=== PATIENT | male | born 1970 | race Caucasian/White ===

== ENCOUNTER 2016-05-21 07:53 | Emergency (ER) | payer BC ==
[2016-05-21 08:27] VITALS: TEMP 97.5
[2016-05-21] MEDS ORDERED: SODIUM CHLORIDE 0.9% (FLUSH) 10 ML SYG IV PRN (08:34)
[2016-05-21] MEDS ORDERED: ONDANSETRON INJ 4 MG/2 ML VIAL IV ONE (08:34)
[2016-05-21] MEDS ORDERED: SODIUM CHLORIDE 0.9% 1000ML 1,000 ML IVS PRN (08:34)
--- NOTE | 2016-05-21 08:41 | ED.PDOC ---
History of Present Illness - General Chief Complaint: GI Problem Stated Complaint: vomiting Time Seen by Provider: 05/21/16 08:34 Information Source: patient Exam Limitations: no limitations - History of Present Illness Initial Comments: PT REPORTS THAT HE ACCIDENTALLY TOOK ONE OF HIS MOTHERS 200MG CELEBREX. SHORTLY THEREAFTER HE BEGAN TO HAVE MULTIPLE EPISODES OF VOMITING. PT DENIES ABDOMINAL PAIN, CONSTIPATION OR DIARRHEA. PT REPORTS RECENT SURGERY ON SCROTUM ABOUT 1 WK AGO. UNCLEAR WHETHER SURGERY WAS FOR VARICOCEAL OR HERNIA. PT REPORTS CONTINUED SWELLING TO THE SCROTUM WITHOUT PAIN. PT HAS FOLLOW UP APPT WITH SURGEON NEXT WEEK. Timing/Duration: 1 hour Improving Factors: nothing Worsening Factors: nothing Associated Symptoms: denies symptoms Review of Systems - Review of Systems Constitutional: Denies: diaphoresis, fever EENTM: Denies: eye pain, blurred vision Respiratory: Denies: cough, short of breath Cardiology: Denies: chest pain, palpitations Gastrointestinal/Abdominal: States: see HPI, vomiting. Denies: abdominal pain, constipation, diarrhea Musculoskeletal: Denies: back pain, joint swelling Skin: Denies: change in color, dryness Neurological: Denies: headache, tremors Endocrine: Denies: no symptoms reported Past Medical History (General) - Patient Medical History Hx Seizures: No Hx Stroke: No Hx Dementia: No Hx Asthma: Yes Hx of COPD: No Hx Cardiac Disorders: No Hx Congestive Heart Failure: No Hx Pacemaker: No Hx Hypertension: Yes Hx Thyroid Disease: No Hx Diabetes: No Hx Gastroesophageal Reflux: No Hx Renal Disease: No Hx Cancer: No Hx of HIV: No Hx Hepatitis C: No Hx MRSA: No Hx Other - free text: BIPOLAR, ANXIETY, ADHD Surgical History: cholecystectomy Other Surgeries:: CARPAL TUNNEL, SCROTAL SURGERY LAST WEEK - Vaccination History Hx Tetanus, Diphtheria Vaccination: No Hx Influenza Vaccination: Yes Hx Pneumococcal Vaccination: Yes - Social History Hx Tobacco Use: No Hx Chewing Tobacco Use: Yes Hx Alcohol Use: No Hx Substance Use: No Hx Substance Use Treatment: No Hx Depression: Yes Hx Physical Abuse: No Hx Emotional Abuse: No Hx Suspected Abuse: No - Female History Patient : No Family Medical History - Family History Mother Family History: No Known Living Status: Unknown Hx Family Congestive Heart Failure: Yes Hx Family Diabetes: Yes Physical Exam - Physical Exam General Appearance: Alert, No apparent distress, Obese, Well Developed, Well Groomed Eyes, Ears, Nose, Throat Exam: PERRL/EOMI, normal ENT inspection Neck: full range of motion, normal inspection Respiratory: lungs clear, no respiratory distress Cardiovascular/Chest: regular rate, rhythm, no murmur Gastrointestinal/Abdominal: normal bowel sounds, non tender, soft Male Genitalia: other - MODERATE TO SEVERE GENERALIZED SWELLING TO SCROTUM, NON TENDER TO PALPATION. SURGICAL INCISION ALONG RIGHT SIDE OF SCROTUM WITH SUTURES IN PLACE. NO ERYTHEMA, NO INDURATION. Extremity: normal range of motion, normal inspection Neurologic: normal mood/affect, oriented x 3 Skin Exam: normal color, warm/dry Progress - Progress Progress: 05/21/16 09:34 PT RESTING COMFORTABLY, ABLE TO TOLERATE PO WHILE IN THE ED. LABS AND XRAY DISCUSSED WITH PT. PT WILL FOLLOW UP WITH SURGEON PREVIOUSLY ARRANGED NEXT WEEK. - Results/Orders Results/Orders: Laboratory Tests 05/21/16 09:10 WBC 8.3 RBC 4.78 Hgb 14.6 Hct 43.2 MCV 90.4 MCH 30.6 MCHC 33.9 RDW 13.8 Plt Count 305 MPV 7.9 Absolute Neuts (auto) 5.50 Absolute Lymphs (auto) 1.50 Absolute Monos (auto) 0.90 H Absolute Eos (auto) 0.30 Absolute Basos (auto) 0.10 Neutrophils % 66.0 Lymphocytes % 18.4 L Monocytes % 11.3 H Eosinophils % 3.1 Basophils % 1.2 Sodium 137 Potassium 3.9 Chloride 103 Carbon Dioxide 27 Anion Gap 10.9 L BUN 20 H Creatinine 0.72 BUN/Creatinine Ratio 27.8 H Random Glucose 116 H Serum Osmolality 277.4 Calcium 9.2 Total Bilirubin 0.3 Direct Bilirubin < 0.1 Indirect Bilirubin 0.2 AST 30 ALT 36 Alkaline Phosphatase 105 Serum Total Protein 7.0 Albumin 3.9 - EKG/XRAY/CT Xray Comments: NON OBSTRUCTIVE BOWEL GAS PATTERN ON 2 VIEW ABD FILM Departure - Departure Clinical Impression: Vomiting, Accidental medication overdose Time of Disposition: 10:02 Disposition: Discharge to Home or Self Care Condition: Excellent Departure Forms: ED Discharge - Pt. Copy, Patient Portal Self Enrollment Instructions: DI for Vomiting -- Adult Diet: bland diet Referrals: German Hassan MD [Primary Care Provider] - 1-2 Weeks Prescriptions: Ondansetron Odt [Zofran ODT] 8 mg PO Q8HR PRN #15 tab PRN Reason: Nausea/Vomiting Home Medications: Ambulatory Orders Amlodipine Besylate [Norvasc] 03/30/16 Aspirin [(None)] 325 mg PO 03/30/16 Atomoxetine HCl [Strattera] 40 mg PO 03/30/16 Calcium Carbonate-Cholecalcife [Calcium 1000 + D 1000-800 mg-Unit] 03/30/16 Citalopram Hydrobromide 40 mg PO 03/30/16 Lamotrigine [Lamictal] 03/30/16 Losartan Potassium 50 mg PO 03/30/16 Methylphenidate HCl [Methylphenidate HCl ER] 36 mg PO 03/30/16 Multiple Vitamins W/ Minerals [Multivitamin Adults] 03/30/16 [place]-3 Fatty Acids [Fish Oil] 1,000 mg PO 03/30/16 Oxcarbazepine [Trileptal] 150 mg PO 03/30/16 Pantoprazole Sodium [Protonix] 20 mg PO 03/30/16 Propranolol HCl [Inderal] 03/30/16 Tamsulosin [Flomax] 03/30/16 Doxycycline (Monohydrate) [Doxycycline] 100 mg PO BID #20 cap 05/11/16 Ibuprofen 800 mg PO Q8H PRN #30 tab 05/11/16 Ondansetron Odt [Zofran ODT] 8 mg PO Q8HR PRN #15 tab 05/21/16
--- NOTE | 2016-05-21 08:56 | RAD ---
EXAM DESCRIPTION: Abdomen radiography. CLINICAL HISTORY: Abdominal pain. COMPARISON: None. TECHNIQUE: Two views. FINDINGS: Bowel gas pattern is non-obstructed. There is no obvious free intraperitoneal air. Visualized segments of the abdominal organs are unremarkable. No suspicious bone lesion or fracture is seen. IMPRESSION: Nonspecific small bowel gas pattern. Patient is status post cholecystectomy. Electronically signed by: Mark Vines MD 05/21/2016 08:54
[2016-05-21 10:14] VITALS: BP 151/86; O2SAT 99
== END 2016-05-21 10:12 | disposition home or self-care (01) ==
LOC: ER 07:53
DX: T39.391A Poisoning by other nonsteroidal anti-inflammatory drugs [NSAID], accidental (unintentional), initial encounter (principal); R11.10 Vomiting, unspecified; F31.9 Bipolar disorder, unspecified; F41.9 Anxiety disorder, unspecified; Z98.890 Other specified postprocedural states

== ENCOUNTER → 2016-08-06 | Outpatient (CLI) | payer BC | END | disposition home or self-care (01) | LOC: GMA 12:01 | PROVIDERS: ATTEND Nurse Practitioner Acute Care | DX: M25.50 Pain in unspecified joint (principal); R53.83 Other fatigue; E29.1 Testicular hypofunction ==

== ENCOUNTER → 2016-08-25 | Outpatient (CLI) | payer BC | LOC: SL 13:12 | PROVIDERS: ATTEND Family Medicine | DX: G47.00 Insomnia, unspecified (principal); G31.84 Mild cognitive impairment of uncertain or unknown etiology; I27.9 Pulmonary heart disease, unspecified; E66.9 Obesity, unspecified; F39 Unspecified mood [affective] disorder ==

== ENCOUNTER 2016-08-26 17:01 | Emergency (ER) | payer BC ==
[2016-08-26 18:45] VITALS: TEMP 98.4
[2016-08-26] MEDS ORDERED: SODIUM CHLORIDE 0.9% (FLUSH) 10 ML SYG IV PRN (19:12)
--- NOTE | 2016-08-26 20:57 | RAD ---
Procedure: XR ABDOMEN 2 VIEWS SUPINE ERECT Exam Date: 08/26/2016 Ordering Provider: Kaitlin Bunch Clinical Indication: chest pain/sob/LUQ pain Comparison: 05/21/2016 Findings: Upright chest x-ray: Cardiac size is normal. Pulmonary vasculature is normal. Mediastinal and aortic contour normal. There is no consolidation or effusion. Flat and upright abdomen: Surgical clips in the right upper quadrant. There is no small or large bowel distention. There is no pneumoperitoneum. There are no suspicious calcifications. Pelvic phleboliths. There is no acute skeletal abnormality. Impression: 1. No acute radiographic abnormalities in the chest, abdomen or pelvis. Electronically signed by: Romeo Su MD 08/26/2016 8:56 PM CDT
--- NOTE | 2016-08-26 23:04 | CT ---
EXAM DESCRIPTION: Abdomen/Pelvis w/Contrast CLINICAL HISTORY: 46 years Male LLQ pain COMPARISON: None. TECHNIQUE: Contiguous axial images obtained through the abdomen and pelvis following IV contrast. Reformatted images obtained. This exam was performed according to our department optimization program which includes automated exposure control, adjustment of the mA and/or kv according to patient size and/or use of iterative reconstruction technique. FINDINGS: Mild atelectatic changes at the lung bases. Fatty replacement in the liver. The spleen and pancreas appear unremarkable. The left adrenal gland is mildly nodular. Mild perinephric stranding likely chronic. No hydronephrosis. Changes from previous cholecystectomy. No aneurysmal dilatation of the aorta. No bowel obstruction. Occasional colonic diverticula. The appendix appears unremarkable. No free pelvic fluid. Mild degenerative changes in the spine. IMPRESSION: No acute intra-abdominal abnormality is identified. Fatty replacement in the liver. The left adrenal gland is mildly nodular. Electronically signed by: Leno Morin MD 08/26/2016 11:03 PM CDT
[2016-08-26] MEDS ORDERED: KETOROLAC TROMETHAMINE INJ 30 MG/ML VIAL IV ONE (23:06)
--- NOTE | 2016-08-26 23:16 | ED.PDOC ---
History of Present Illness - General Chief Complaint: Respiratory Problem Stated Complaint: body aches and sob Time Seen by Provider: 08/26/16 19:12 Source: patient, RN notes reviewed, Vital Signs reviewed Exam Limitations: no limitations - History of Present Illness Initial Comments: Patient is a 46 y/o obese male who is complaining of musculoskeletal aches and pains all over. He has been to see his PCP and the PCP has ordered numerous tests and referrals. Patient States this has been going on for about 2 weeks. He is scheduled to start testosterone injections next week. The pain is achey and crampy, moderate to severe and worsening with time. The pain today is in his LLQ, however he still aches all over. Timing/Duration: getting worse, other - 2 weeks Severity: moderate, severe Improving Factors: nothing Worsening Factors: movement Associated Symptoms: chest pain, headaches, weakness Allergies/Adverse Reactions: Allergies NO KNOWN ALLERGY Allergy (Verified 08/26/16 18:45) Home Medications: Ambulatory Orders Amlodipine Besylate [Norvasc] 03/30/16 Aspirin [(None)] 325 mg PO 03/30/16 Atomoxetine HCl [Strattera] 40 mg PO 03/30/16 Calcium Carbonate-Cholecalcife [Calcium 1000 + D 1000-800 mg-Unit] 03/30/16 Citalopram Hydrobromide 40 mg PO 03/30/16 Lamotrigine [Lamictal] 03/30/16 Losartan Potassium 50 mg PO 03/30/16 Methylphenidate HCl [Methylphenidate HCl ER] 36 mg PO 03/30/16 Multiple Vitamins W/ Minerals [Multivitamin Adults] 03/30/16 [place]-3 Fatty Acids [Fish Oil] 1,000 mg PO 03/30/16 Oxcarbazepine [Trileptal] 150 mg PO 03/30/16 Pantoprazole Sodium [Protonix] 20 mg PO 03/30/16 Propranolol HCl [Inderal] 03/30/16 Tamsulosin [Flomax] 03/30/16 Doxycycline (Monohydrate) [Doxycycline] 100 mg PO BID #20 cap 05/11/16 Ibuprofen 800 mg PO Q8H PRN #30 tab 05/11/16 Ondansetron Odt [Zofran ODT] 8 mg PO Q8HR PRN #15 tab 05/21/16 Review of Systems - Review of Systems Constitutional: States: malaise, weakness EENTM: States: no symptoms reported Respiratory: States: cough, short of breath Cardiology: States: chest pain Gastrointestinal/Abdominal: States: abdominal pain. Denies: constipation, diarrhea, nausea, vomiting Genitourinary: States: other - testicular hydrocele Musculoskeletal: States: back pain, joint pain, muscle pain, muscle stiffness, neck pain Skin: States: no symptoms reported Neurological: States: headache, numbness, weakness Endocrine: States: no symptoms reported Hematologic/Lymphatic: States: no symptoms reported All other Systems: Reviewed and Negative Past Medical History (General) - Patient Medical History Hx Seizures: No Hx Stroke: No Hx Dementia: No Hx Asthma: Yes Hx of COPD: No Hx Cardiac Disorders: No Hx Congestive Heart Failure: No Hx Pacemaker: No Hx Hypertension: Yes Hx Thyroid Disease: No Hx Diabetes: No Hx Gastroesophageal Reflux: No Hx Renal Disease: No Hx Cancer: No Hx of HIV: No Hx Hepatitis C: No Hx MRSA: No Surgical History: cholecystectomy - Vaccination History Hx Tetanus, Diphtheria Vaccination: No Hx Influenza Vaccination: Yes Hx Pneumococcal Vaccination: Yes - Social History Hx Tobacco Use: No Hx Chewing Tobacco Use: Yes Hx Alcohol Use: No Hx Substance Use: No Hx Substance Use Treatment: No Hx Depression: Yes Hx Physical Abuse: No Hx Emotional Abuse: No Hx Suspected Abuse: No - Activities of Daily Living Hospice Agency (if applicable):: None - Female History Patient is a Female of Child Bearing Age (10 -59 yrs old): No Patient : No Family Medical History - Family History Mother Family History: No Known Living Status: Unknown Hx Family Congestive Heart Failure: Yes Hx Family Diabetes: Yes Physical Exam - Physical Exam General Appearance: Alert, Comfortable, No apparent distress Eye Exam: bilateral normal Ears, Nose, Throat: hearing grossly normal, normal ENT inspection Neck: full range of motion, supple Respiratory: chest non-tender, lungs clear, normal breath sounds, no respiratory distress Cardiovascular/Chest: regular rate, rhythm, no edema, no gallop, no murmur Gastrointestinal/Abdominal: normal bowel sounds, distended, tenderness - primarily in LLQ Back Exam: normal inspection, no CVA tenderness Extremity: normal range of motion, no calf tenderness, other - mild tenderness to palpation all muscles Neurologic: alert, normal mood/affect, oriented x 3 Skin Exam: normal color, warm/dry Progress - Progress Progress: 08/26/16 23:20 Patient's pain may be due to several etiologies, including fibromyalgia, Generalized cramps, viral syndrome, and many others. Patient's CK is normal and he does not have an elevated WBC. He is going to see specialists which I have encouraged him to keep appointments with. I have instructed him that, if taking naproxen and tylenol regularly do not help, he should call his office to see if there is any other medication he would like Patient to have. - Results/Orders Results/Orders: 08/26/16 08/26/16 08/26/16 18:37 18:45 19:40 Temperature 98.4 F Pulse Rate [ 81 77 pulse ox] Respiratory 20 20 20 Rate Blood Pressure 175/80 133/81 [Left Arm] O2 Sat by Pulse 93 L 97 Oximetry 08/26/16 21:41 Temperature Pulse Rate [ 71 pulse ox] Respiratory 20 Rate Blood Pressure 121/78 [Left Arm] O2 Sat by Pulse 97 Oximetry 08/26/16 19:12 Sodium Chloride 0.9% (Flush) [Saline Flush Syringe] 10 ml IV PRN PRN 08/26/16 19:13 IV Care:Saline Lock per Protoc QSHIFT Telemetry .ONCE EKG Assessment ONCE EKG Stat Pulse Ox Stat Pulse Oximetry Assessment DAILY 08/26/16 20:18 Hold Metformin x 48Hrs [id number] Laboratory Results WBC 9.3 K/mm3 (4.8-10.8) 08/26/16 20:00 RBC 4.74 M/mm3 (4.70-6.10) 08/26/16 20:00 Hgb 14.1 gm/dL (14.0-18.0) 08/26/16 20:00 Hct 41.9 % (42.0-52.0) L 08/26/16 20:00 MCV 88.3 fl (80.0-94.0) 08/26/16 20:00 MCH 29.7 pg (27.0-31.0) 08/26/16 20:00 MCHC 33.7 g/dL (33.0-37.0) 08/26/16 20:00 RDW 14.4 % (11.5-14.5) 08/26/16 20:00 Plt Count 256 K/mm3 (130-400) 08/26/16 20:00 MPV 8.3 fl (7.40-10.4) 08/26/16 20:00 Absolute Neuts (auto) 5.70 K/uL (1.8-6.8) 08/26/16 20:00 Absolute Lymphs (auto) 2.10 K/uL (1.0-3.4) 08/26/16 20:00 Absolute Monos (auto) 1.20 K/uL (0.2-0.8) H 08/26/16 20:00 Absolute Eos (auto) 0.20 K/uL (0.0-0.4) 08/26/16 20:00 Absolute Basos (auto) 0.10 K/uL (0.0-0.1) 08/26/16 20:00 Neutrophils % 61.4 % (42.0-78.0) 08/26/16 20:00 Lymphocytes % 22.5 % (20.0-50.0) 08/26/16 20:00 Monocytes % 12.7 % (2.0-9.0) H 08/26/16 20:00 Eosinophils % 2.3 % (1.0-5.0) 08/26/16 20:00 Basophils % 1.1 % (0.0-2.0) 08/26/16 20:00 PT 10.5 SECONDS (9.4-12.5) 08/26/16 20:00 INR 0.930 08/26/16 20:00 PTT (SP) 30.7 SECONDS (25.1-36.5) 08/26/16 20:00 D-Dimer, Quantitative < 200 ng/mL (0-230) 08/26/16 20:00 Sodium 137 mmol/L (135-145) 08/26/16 20:00 Potassium 3.5 mmol/L (3.6-5.0) L 08/26/16 20:00 Chloride 101 mmol/L (101-111) 08/26/16 20:00 Carbon Dioxide 29 mmol/L (21-31) 08/26/16 20:00 Anion Gap 10.5 (12-18) L 08/26/16 20:00 BUN 21 mg/dL (7-18) H 08/26/16 20:00 Creatinine 0.75 mg/dL (0.6-1.3) 08/26/16 20:00 BUN/Creatinine Ratio 28.0 (10-20) H 08/26/16 20:00 Random Glucose 88 mg/dL (70-105) 08/26/16 20:00 Serum Osmolality 276.2 mOsm/L (275-295) 08/26/16 20:00 Calcium 9.0 mg/dL (8.4-10.2) 08/26/16 20:00 Magnesium 1.9 mg/dL (1.8-2.5) 08/26/16 20:00 Total Bilirubin 0.3 mg/dL (0.2-1.0) 08/26/16 20:00 Direct Bilirubin < 0.1 mg/dL (0-0.2) 08/26/16 20:00 Indirect Bilirubin 0.2 mg/dL (0.2-0.8) 08/26/16 20:00 AST 31 IU/L (10-42) 08/26/16 20:00 ALT 48 IU/L (10-60) 08/26/16 20:00 Alkaline Phosphatase 90 IU/L (42-121) 08/26/16 20:00 Creatine Kinase 102 IU/L (38-174) 08/26/16 20:00 CK-MB (CK-2) 3.0 ng/mL (0.0-4.4) 08/26/16 20:00 CK-MB (CK-2) % Not Reportable 08/26/16 20:00 Troponin I < 0.02 ng/mL (0.01-0.05) 08/26/16 20:00 B-Natriuretic Peptide 6.4 pg/ml (0-100) 08/26/16 20:00 Serum Total Protein 6.8 gm/dL (6.4-8.2) 08/26/16 20:00 Albumin 3.9 g/dl (3.2-5.5) 08/26/16 20:00 Lipase 28 U/L (22-51) 08/26/16 20:00 - EKG/XRAY/CT XRAY: abdomen - Normal chest and abdomen CT: Abd/Pelvis with contrast: Normal CT Ordered: Yes CT Interpretation Call Back: No - Report sent Departure - Departure Clinical Impression: Myalgia ICD-10 Supporting Text: Generalized Time of Disposition: 23:28 Disposition: Discharge to Home or Self Care Condition: Fair Departure Forms: ED Discharge - Pt. Copy, Patient Portal Self Enrollment Diet: low fat, low cholesterol Referrals: German Hassan MD [Primary Care Provider] - 1-2 Days Home Medications: Ambulatory Orders Amlodipine Besylate [Norvasc] 03/30/16 Aspirin [(None)] 325 mg PO 03/30/16 Atomoxetine HCl [Strattera] 40 mg PO 03/30/16 Calcium Carbonate-Cholecalcife [Calcium 1000 + D 1000-800 mg-Unit] 03/30/16 Citalopram Hydrobromide 40 mg PO 03/30/16 Lamotrigine [Lamictal] 03/30/16 Losartan Potassium 50 mg PO 03/30/16 Methylphenidate HCl [Methylphenidate HCl ER] 36 mg PO 03/30/16 Multiple Vitamins W/ Minerals [Multivitamin Adults] 03/30/16 [place]-3 Fatty Acids [Fish Oil] 1,000 mg PO 03/30/16 Oxcarbazepine [Trileptal] 150 mg PO 03/30/16 Pantoprazole Sodium [Protonix] 20 mg PO 03/30/16 Propranolol HCl [Inderal] 03/30/16 Tamsulosin [Flomax] 03/30/16 Doxycycline (Monohydrate) [Doxycycline] 100 mg PO BID #20 cap 05/11/16 Ibuprofen 800 mg PO Q8H PRN #30 tab 05/11/16 Ondansetron Odt [Zofran ODT] 8 mg PO Q8HR PRN #15 tab 05/21/16 Additional Instructions: For pain control: Take over the counter Aleve - 2 tablets every 12 hours. Tylenol every 4 hours between Aleve. Follow up with Dr. Hassan if this does not control pain. Follow up in ED if symptoms worsen.
[2016-08-26 23:34] VITALS: BP 131/88; O2SAT 96
== END 2016-08-26 23:42 | disposition home or self-care (01) ==
LOC: ER 17:01
DX: M79.1 Myalgia (principal); J45.909 Unspecified asthma, uncomplicated; I10 Essential (primary) hypertension; F32.9 Major depressive disorder, single episode, unspecified; Z79.82 Long term (current) use of aspirin; Z79.899 Other long term (current) drug therapy; Z87.891 Personal history of nicotine dependence

== ENCOUNTER → 2016-09-08 | Outpatient (CLI) | payer BC | LOC: GMAM 17:49 | PROVIDERS: ATTEND Family Medicine | DX: R06.02 Shortness of breath (principal) ==

== ENCOUNTER 2016-10-14 19:01 | Emergency (ER) | payer BC ==
[2016-10-14 19:36] VITALS: TEMP 99.8
--- NOTE | 2016-10-14 19:54 | ED.PDOC ---
History of Present Illness - General Chief Complaint: Back Pain or Injury Stated Complaint: swollen feet, back pain, SOB, weight gain Time Seen by Provider: 10/14/16 19:47 Additional Information: PT C/O SWELLING LEGS AND FEET ASSOCIATED WITH PAIN - History of Present Illness Timing/Duration: other - 2 DAYS Severity: moderate Improving Factors: nothing Worsening Factors: other - WEIGHT BEARING Associated Symptoms: other - NO SOB Allergies/Adverse Reactions: Allergies Penicillins Allergy (Verified 10/14/16 19:23) Home Medications: Ambulatory Orders Amlodipine Besylate [Norvasc] 10 mg PO DAILY 03/30/16 Aspirin [(None)] 325 mg PO DAILY 03/30/16 Atomoxetine HCl [Strattera] 40 mg PO 03/30/16 Citalopram Hydrobromide 40 mg PO DAILY 03/30/16 Lamotrigine [Lamictal] 03/30/16 Losartan Potassium 50 mg PO BID 03/30/16 Methylphenidate HCl [Methylphenidate HCl ER] 36 mg PO 03/30/16 Multiple Vitamins W/ Minerals [Multivitamin Adults] 1 unit PO DAILY 03/30/16 Oxcarbazepine [Trileptal] 300 mg PO BID 03/30/16 Pantoprazole Sodium [Protonix] 40 mg PO DAILY 03/30/16 Propranolol HCl [Inderal] 20 mg PO BID 03/30/16 Ibuprofen 800 mg PO Q8H PRN #30 tab 05/11/16 Acetaminophen [Tylenol] 500 mg PO PRN 10/14/16 Albuterol Inhaler [Ventolin Hfa Inhaler] 1 inh INH PRN 10/14/16 Budesonide (Nasal) [Rhinocort Allergy] 32 mcg NA DAILY 10/14/16 Chlorpheniramine Maleate 4 mg PO PRN 10/14/16 EPINEPHrine INJ [Epinephrine HCl] 0.3 mg IJ PRN 10/14/16 Fexofenadine HCl [Allergy 24-Hr] 180 mg PO DAILY 10/14/16 Fluticasone Furoate-Vilanterol [Breo Ellipta 200-25 Mcg/INH] 1 inh INH DAILY Trazodone HCl 100 mg PO BEDTIME 10/14/16 Review of Systems - Review of Systems Constitutional: Denies: chills, fever EENTM: States: no symptoms reported Respiratory: States: wheezing. Denies: cough, short of breath Cardiology: Denies: chest pain, edema Gastrointestinal/Abdominal: Denies: nausea, vomiting Genitourinary: States: no symptoms reported Musculoskeletal: States: other - C/O ONLY SOME MILD BACK PAIN Skin: States: other - SWELLING OF THE [place]TE[place] Neurological: Denies: numbness, weakness Endocrine: States: no symptoms reported Past Medical History (General) - Patient Medical History Hx Seizures: No Hx Stroke: No Hx Dementia: No Hx Asthma: Yes Hx of COPD: No Hx Cardiac Disorders: No Hx Congestive Heart Failure: No Hx Pacemaker: No Hx Hypertension: Yes Hx Thyroid Disease: No Hx Diabetes: No Hx Gastroesophageal Reflux: No Hx Renal Disease: No Hx Cancer: No Hx of HIV: No Hx Hepatitis C: No Hx MRSA: No - Vaccination History Hx Tetanus, Diphtheria Vaccination: Yes Hx Influenza Vaccination: Yes Hx Pneumococcal Vaccination: Yes Immunizations Up to Date: Yes - Social History Hx Tobacco Use: No Hx Chewing Tobacco Use: Yes Hx Alcohol Use: Yes Hx Substance Use: No Hx Substance Use Treatment: No Hx Depression: Yes Feels Threatened In Home Enviroment: No Feels Threatened In a Relationship: No Hx Physical Abuse: No Hx Emotional Abuse: No Hx Suspected Abuse: No - Female History Patient : No Family Medical History - Family History Mother Family History: No Known Living Status: Unknown Hx Family Congestive Heart Failure: Yes Hx Family Diabetes: Yes Physical Exam - Physical Exam General Appearance: No apparent distress, Other - OBESE Eye Exam: bilateral normal Ears, Nose, Throat: hearing grossly normal, normal ENT inspection Neck: non-tender, full range of motion, supple Respiratory: normal breath sounds, no respiratory distress, wheezing Cardiovascular/Chest: regular rate, rhythm, no murmur Gastrointestinal/Abdominal: normal bowel sounds, non tender, soft, no organomegaly Back Exam: normal inspection, other - NO SACRAL EDEMA Extremity: normal range of motion, other - 2+ PITTING EDEMA Neurologic: alert, normal mood/affect Skin Exam: normal color Lymphatic: no adenopathy Progress - Progress Progress: 10/14/16 22:09 SLEEPING, NAD, SATS 93% RA, NL. - EKG/XRAY/CT EKG: Sinus - NSR 76, LAD, NON SPECIFIC T WAVE CHANGES, NAIP, COMPARISON, 2016 XRAY: chest - MILD ATELECTASIS L BASE. Departure - Departure Clinical Impression: Peripheral edema Chronic asthma Qualifiers: Asthma severity: mild intermittent Asthma complication type: uncomplicated Qualified Code(s): J45.20 - Mild intermittent asthma, uncomplicated Time of Disposition: 22:11 Disposition: Discharge to Home or Self Care Condition: Good Departure Forms: ED Discharge - Pt. Copy, Patient Portal Self Enrollment Referrals: German Hassan MD [Primary Care Provider] - 1-2 Weeks Home Medications: Ambulatory Orders Amlodipine Besylate [Norvasc] 10 mg PO DAILY 03/30/16 Aspirin [(None)] 325 mg PO DAILY 03/30/16 Atomoxetine HCl [Strattera] 40 mg PO 03/30/16 Citalopram Hydrobromide 40 mg PO DAILY 03/30/16 Lamotrigine [Lamictal] 03/30/16 Losartan Potassium 50 mg PO BID 03/30/16 Methylphenidate HCl [Methylphenidate HCl ER] 36 mg PO 03/30/16 Multiple Vitamins W/ Minerals [Multivitamin Adults] 1 unit PO DAILY 03/30/16 Oxcarbazepine [Trileptal] 300 mg PO BID 03/30/16 Pantoprazole Sodium [Protonix] 40 mg PO DAILY 03/30/16 Propranolol HCl [Inderal] 20 mg PO BID 03/30/16 Ibuprofen 800 mg PO Q8H PRN #30 tab 05/11/16 Acetaminophen [Tylenol] 500 mg PO PRN 10/14/16 Albuterol Inhaler [Ventolin Hfa Inhaler] 1 inh INH PRN 10/14/16 Budesonide (Nasal) [Rhinocort Allergy] 32 mcg NA DAILY 10/14/16 Chlorpheniramine Maleate 4 mg PO PRN 10/14/16 EPINEPHrine INJ [Epinephrine HCl] 0.3 mg IJ PRN 10/14/16 Fexofenadine HCl [Allergy 24-Hr] 180 mg PO DAILY 10/14/16 Fluticasone Furoate-Vilanterol [Breo Ellipta 200-25 Mcg/INH] 1 inh INH DAILY Trazodone HCl 100 mg PO BEDTIME 10/14/16 Additional Instructions: TAKE MEDICATIONS DIRECTED. Comments: RX HCTZ 25MG QD #20
[2016-10-14] MEDS ORDERED: IPRATROPIUM/ALBUTEROL 3 ML VIAL NEB ONE (19:55)
--- NOTE | 2016-10-14 20:40 | RAD ---
EXAM DESCRIPTION: Chest,2 Views CLINICAL HISTORY: 46 years Male wheezing COMPARISON: March 23, 2011. FINDINGS: The cardiomediastinal silhouette appears unremarkable. No consolidating infiltrates or pleural effusions. No pneumothorax. Small amount of pleural thickening is present along the lateral chest rios bilaterally this appears more prominent than on the previous study and may be related to pleural fat. Basilar atelectasis. IMPRESSION: Bilateral basilar atelectasis Electronically signed by: Jammie Morin 10/14/2016 8:40 PM CDT
[2016-10-14 22:23] VITALS: BP 108/70; O2SAT 96
== END 2016-10-14 22:24 | disposition home or self-care (01) ==
LOC: ER 19:01
DX: J45.20 Mild intermittent asthma, uncomplicated (principal); R60.0 Localized edema; Z87.891 Personal history of nicotine dependence; I10 Essential (primary) hypertension; Z88.0 Allergy status to penicillin; Z79.899 Other long term (current) drug therapy; Z79.82 Long term (current) use of aspirin

== ENCOUNTER → 2016-10-14 | Outpatient (CLI) | payer BC | LOC: GMA 17:03 | PROVIDERS: ATTEND Nurse Practitioner Family | DX: R06.02 Shortness of breath (principal) ==

== ENCOUNTER → 2016-10-14 | Outpatient (CLI) | payer BC ==
--- NOTE | 2016-10-14 13:57 | US ---
EXAM DESCRIPTION: Venous,Lower Extremity LT CLINICAL HISTORY: LEG SWELLING COMPARISON: None Available. TECHNIQUE: Left lower extremity venous grayscale, spectral, and color Doppler sonographic images. FINDINGS: There is no DVT identified. There is normal color flow observed with good flow augmentation. All deep veins compress normally. Mild soft tissue edema is present. IMPRESSION: Negative for DVT Electronically signed by: Jack Wylie MD 10/14/2016 1:56 PM CDT
== END ==
LOC: US 13:13
PROVIDERS: ATTEND Nurse Practitioner Family
DX: R60.0 Localized edema (principal)

== ENCOUNTER 2016-10-17 11:08 | Emergency (ER) | payer BC ==
--- NOTE | 2016-10-17 13:21 | ED.PDOC ---
History of Present Illness - General Chief Complaint: General Stated Complaint: daytime sleepiness Time Seen by Provider: 10/17/16 11:12 Source: patient, RN notes reviewed, Vital Signs reviewed Exam Limitations: no limitations Additional Information: Obese male who frequents ER. Complaining of persistently swollen lower legs/ feet. He is ambulatory. He also complains of persistent daytime sleepiness. Patient has history of Obstructive Sleep Apnea. Pt in no distress. - History of Present Illness Timing/Duration: unsure Severity: mild Improving Factors: nothing Worsening Factors: nothing Associated Symptoms: other - sleepiness and persistent lower extremity edema Allergies/Adverse Reactions: Allergies Penicillins Allergy (Verified 10/14/16 19:23) Home Medications: Ambulatory Orders Amlodipine Besylate [Norvasc] 10 mg PO DAILY 03/30/16 Aspirin [(None)] 325 mg PO DAILY 03/30/16 Atomoxetine HCl [Strattera] 40 mg PO 03/30/16 Citalopram Hydrobromide 40 mg PO DAILY 03/30/16 Lamotrigine [Lamictal] 03/30/16 Losartan Potassium 50 mg PO BID 03/30/16 Methylphenidate HCl [Methylphenidate HCl ER] 36 mg PO 03/30/16 Multiple Vitamins W/ Minerals [Multivitamin Adults] 1 unit PO DAILY 03/30/16 Oxcarbazepine [Trileptal] 300 mg PO BID 03/30/16 Pantoprazole Sodium [Protonix] 40 mg PO DAILY 03/30/16 Propranolol HCl [Inderal] 20 mg PO BID 03/30/16 Ibuprofen 800 mg PO Q8H PRN #30 tab 05/11/16 Acetaminophen [Tylenol] 500 mg PO PRN 10/14/16 Albuterol Inhaler [Ventolin Hfa Inhaler] 1 inh INH PRN 10/14/16 Budesonide (Nasal) [Rhinocort Allergy] 32 mcg NA DAILY 10/14/16 Chlorpheniramine Maleate 4 mg PO PRN 10/14/16 EPINEPHrine INJ [Epinephrine HCl] 0.3 mg IJ PRN 10/14/16 Fexofenadine HCl [Allergy 24-Hr] 180 mg PO DAILY 10/14/16 Fluticasone Furoate-Vilanterol [Breo Ellipta 200-25 Mcg/INH] 1 inh INH DAILY Trazodone HCl 100 mg PO BEDTIME 10/14/16 Review of Systems - Review of Systems Constitutional: States: no symptoms reported EENTM: States: see HPI Respiratory: States: see HPI, orthopnea Cardiology: States: no symptoms reported Gastrointestinal/Abdominal: States: no symptoms reported Genitourinary: States: no symptoms reported Musculoskeletal: States: no symptoms reported Skin: States: no symptoms reported Neurological: States: no symptoms reported Endocrine: States: no symptoms reported Hematologic/Lymphatic: States: no symptoms reported Past Medical History (General) - Patient Medical History Hx Seizures: No Hx Stroke: No Hx Dementia: No Hx Asthma: Yes Hx of COPD: No Hx Cardiac Disorders: No Hx Congestive Heart Failure: No Hx Pacemaker: No Hx Hypertension: Yes Hx Thyroid Disease: No Hx Diabetes: No Hx Gastroesophageal Reflux: No Hx Renal Disease: No Hx Cancer: No Hx of HIV: No Hx Hepatitis C: No Hx MRSA: No - Vaccination History Hx Tetanus, Diphtheria Vaccination: Yes Hx Influenza Vaccination: Yes Hx Pneumococcal Vaccination: Yes - Social History Hx Tobacco Use: No Hx Chewing Tobacco Use: Yes Hx Alcohol Use: Yes Hx Substance Use: No Hx Substance Use Treatment: No Hx Depression: Yes Hx Physical Abuse: No Hx Emotional Abuse: No Hx Suspected Abuse: No - Female History Patient : No Family Medical History - Family History Mother Family History: No Known Living Status: Unknown Hx Family Congestive Heart Failure: Yes Hx Family Diabetes: Yes Physical Exam - Physical Exam General Appearance: Comfortable, No apparent distress - , able to sleep comfortably in hospital bed and waiting in chair., Obese Eye Exam: bilateral normal Ears, Nose, Throat: hearing grossly normal, normal ENT inspection - other than mallampati IV, other - Mallampati IV Neck: non-tender, full range of motion, supple Respiratory: lungs clear, normal breath sounds, no respiratory distress Cardiovascular/Chest: normal peripheral pulses, regular rate, rhythm, no murmur Gastrointestinal/Abdominal: non tender, soft Back Exam: normal inspection, no vertebral tenderness Extremity: normal range of motion, non-tender, pedal edema - symmetric, bilateral about 1 to 2+; stable based on review of previous notes. 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 Patient provided reassurance and recommendation for further care. Pt stable for d/c home. Pt with Obstructive Sleep Apnea. He would likely benefit from follow-up with Sleep Doctor and Primary Care Provider. - Results/Orders Results/Orders: 10/17/16 11:13 URINALYSIS Stat Laboratory Results - last 24 hr 10/17/16 10/17/16 11:23 11:23 WBC 8.4 RBC 4.77 Hgb 14.1 Hct 42.4 MCV 88.9 MCH 29.6 MCHC 33.3 RDW 14.3 Plt Count 268 MPV 8.1 Absolute Neuts (auto) 5.20 Absolute Lymphs (auto) 1.70 Absolute Monos (auto) 1.10 H Absolute Eos (auto) 0.20 Absolute Basos (auto) 0.10 Neutrophils % 62.0 Lymphocytes % 20.8 Monocytes % 13.7 H Eosinophils % 2.3 Basophils % 1.2 Sodium 138 Potassium 3.8 Chloride 103 Carbon Dioxide 28 Anion Gap 10.8 L BUN 17 Creatinine 0.82 BUN/Creatinine Ratio 20.7 H Random Glucose 119 H Serum Osmolality 278.4 Calcium 9.3 Total Bilirubin 0.5 AST 35 ALT 52 Alkaline Phosphatase 91 B-Natriuretic Peptide 17.9 Serum Total Protein 6.9 Albumin 4.1 Globulin 2.8 Albumin/Globulin Ratio 1.5 Departure - Departure Clinical Impression: Sleepiness, Daytime sleepiness, Bilateral lower extremity edema Time of Disposition: 13:30 Disposition: Discharge to Home or Self Care Condition: Good Departure Forms: ED Discharge - Pt. Copy, Patient Portal Self Enrollment Instructions: DI for Obstructive Sleep Apnea -- Adult Referrals: German Hassan MD [Primary Care Provider] - 1-2 Days Home Medications: Ambulatory Orders Amlodipine Besylate [Norvasc] 10 mg PO DAILY 03/30/16 Aspirin [(None)] 325 mg PO DAILY 03/30/16 Atomoxetine HCl [Strattera] 40 mg PO 03/30/16 Citalopram Hydrobromide 40 mg PO DAILY 03/30/16 Lamotrigine [Lamictal] 03/30/16 Losartan Potassium 50 mg PO BID 03/30/16 Methylphenidate HCl [Methylphenidate HCl ER] 36 mg PO 03/30/16 Multiple Vitamins W/ Minerals [Multivitamin Adults] 1 unit PO DAILY 03/30/16 Oxcarbazepine [Trileptal] 300 mg PO BID 03/30/16 Pantoprazole Sodium [Protonix] 40 mg PO DAILY 03/30/16 Propranolol HCl [Inderal] 20 mg PO BID 03/30/16 Ibuprofen 800 mg PO Q8H PRN #30 tab 05/11/16 Acetaminophen [Tylenol] 500 mg PO PRN 10/14/16 Albuterol Inhaler [Ventolin Hfa Inhaler] 1 inh INH PRN 10/14/16 Budesonide (Nasal) [Rhinocort Allergy] 32 mcg NA DAILY 10/14/16 Chlorpheniramine Maleate 4 mg PO PRN 10/14/16 EPINEPHrine INJ [Epinephrine HCl] 0.3 mg IJ PRN 10/14/16 Fexofenadine HCl [Allergy 24-Hr] 180 mg PO DAILY 10/14/16 Fluticasone Furoate-Vilanterol [Breo Ellipta 200-25 Mcg/INH] 1 inh INH DAILY Trazodone HCl 100 mg PO BEDTIME 10/14/16 Additional Instructions: Please follow-up with sleep physician to discuss need for titration CPAP/Sleep study and possible referral to Ear/Nose/Throat doctor for further evaluation. Lab work looked good today. Feel free to take this information to your primary care provider. Return to the ER if you have any concerns/threats to life, limb, or eyesight.
[2016-10-17 17:44] VITALS: BP 148/78; TEMP 98.5; O2SAT 94
== END 2016-10-17 13:25 | disposition home or self-care (01) ==
LOC: ER 11:08
DX: G47.33 Obstructive sleep apnea (adult) (pediatric) (principal); G47.10 Hypersomnia, unspecified; R60.0 Localized edema; I10 Essential (primary) hypertension; J45.909 Unspecified asthma, uncomplicated; Z88.0 Allergy status to penicillin; Z79.82 Long term (current) use of aspirin; Z79.899 Other long term (current) drug therapy; Z87.891 Personal history of nicotine dependence

== ENCOUNTER 2016-10-19 11:04 | Emergency (ER) | payer BC ==
[2016-10-19 11:40] VITALS: TEMP 98.2
--- NOTE | 2016-10-19 11:45 | ED.PDOC ---
History of Present Illness - General Chief Complaint: GI Problem Stated Complaint: n/v Time Seen by Provider: 10/19/16 11:18 Source: patient Exam Limitations: no limitations - History of Present Illness Initial Comments: the patient is a 46-year-old male presenting to the emergency room secondary to some nausea and vomiting when he takes his diuretic. He has been taking the diuretic for 3 days. He needs to take the diuretic with some Maalox. He additionally is continuing to have some lower extremity edema. He is complaining of daytime drowsiness. No fever. No chest pain. No shortness of breath. He does have sleep apnea and did have a recent sleep study but does not yet have the report of that. No chest pain. No syncope or near syncope. Timing/Duration: 24 hours Severity: mild Improving Factors: nothing Worsening Factors: medication Associated Symptoms: denies symptoms Allergies/Adverse Reactions: Allergies Penicillins Allergy (Verified 10/17/16 14:10) Home Medications: Ambulatory Orders Amlodipine Besylate [Norvasc] 10 mg PO DAILY 03/30/16 Aspirin [(None)] 325 mg PO DAILY 03/30/16 Atomoxetine HCl [Strattera] 40 mg PO 03/30/16 Citalopram Hydrobromide 40 mg PO DAILY 03/30/16 Lamotrigine [Lamictal] 03/30/16 Losartan Potassium 50 mg PO BID 03/30/16 Methylphenidate HCl [Methylphenidate HCl ER] 36 mg PO 03/30/16 Multiple Vitamins W/ Minerals [Multivitamin Adults] 1 unit PO DAILY 03/30/16 Oxcarbazepine [Trileptal] 300 mg PO BID 03/30/16 Pantoprazole Sodium [Protonix] 40 mg PO DAILY 03/30/16 Propranolol HCl [Inderal] 20 mg PO BID 03/30/16 Ibuprofen 800 mg PO Q8H PRN #30 tab 05/11/16 Acetaminophen [Tylenol] 500 mg PO PRN 10/14/16 Albuterol Inhaler [Ventolin Hfa Inhaler] 1 inh INH PRN 10/14/16 Budesonide (Nasal) [Rhinocort Allergy] 32 mcg NA DAILY 10/14/16 Chlorpheniramine Maleate 4 mg PO PRN 10/14/16 EPINEPHrine INJ [Epinephrine HCl] 0.3 mg IJ PRN 10/14/16 Fexofenadine HCl [Allergy 24-Hr] 180 mg PO DAILY 10/14/16 Fluticasone Furoate-Vilanterol [Breo Ellipta 200-25 Mcg/INH] 1 inh INH DAILY Trazodone HCl 100 mg PO BEDTIME 10/14/16 Ondansetron [Zofran Odt] 4 mg PO Q4H PRN #10 tab 10/19/16 Review of Systems - Review of Systems Constitutional: States: malaise EENTM: States: no symptoms reported Respiratory: States: no symptoms reported Cardiology: States: no symptoms reported Gastrointestinal/Abdominal: States: see HPI Genitourinary: States: no symptoms reported Musculoskeletal: States: no symptoms reported Skin: States: no symptoms reported Neurological: States: see HPI Endocrine: States: no symptoms reported All other Systems: No Change from Baseline Past Medical History (General) - Patient Medical History Hx Seizures: No Hx Stroke: No Hx Dementia: No Hx Asthma: Yes Hx of COPD: No Hx Cardiac Disorders: No Hx Congestive Heart Failure: No Hx Pacemaker: No Hx Hypertension: Yes Hx Thyroid Disease: No Hx Diabetes: No Hx Gastroesophageal Reflux: No Hx Renal Disease: No Hx Cancer: No Hx of HIV: No Hx Hepatitis C: No Hx MRSA: No Surgical History: cholecystectomy, other - Vaccination History Hx Tetanus, Diphtheria Vaccination: Yes Hx Influenza Vaccination: Yes Hx Pneumococcal Vaccination: Yes - Social History Hx Tobacco Use: No Hx Chewing Tobacco Use: Yes Hx Alcohol Use: Yes Hx Substance Use: No Hx Substance Use Treatment: No Hx Depression: Yes Hx Physical Abuse: No Hx Emotional Abuse: No Hx Suspected Abuse: No - Female History Patient : No Family Medical History - Family History Mother Family History: No Known Living Status: Unknown Hx Family Congestive Heart Failure: Yes Hx Family Diabetes: Yes Physical Exam - Physical Exam General Appearance: Alert, No apparent distress Eye Exam: bilateral normal Ears, Nose, Throat: hearing grossly normal, normal ENT inspection, normal pharynx Neck: non-tender, full range of motion Respiratory: lungs clear, normal breath sounds, no respiratory distress, no accessory muscle use Cardiovascular/Chest: normal peripheral pulses, regular rate, rhythm Peripheral Pulses: radial,right: 2+, radial,left: 2+, dorsalis pedis,right: 2+, dorsalis pedis,left: 2+ Gastrointestinal/Abdominal: soft, other - obese Rectal Exam: deferred Back Exam: normal inspection, no CVA tenderness Extremity: normal range of motion, non-tender, normal inspection, no calf tenderness, normal capillary refill, pedal edema - +1 bilaterally 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 He can take a dose of Maalox with each dose of his diuretic. He will also be written for Zofran for as needed use to control the vomiting. For the edema he can also use compression stockings that he can obtain from [employer] or a medical supply store. He needs to reduce his salt intake. He also needs to have significant weight loss to reduce the edema as well as improve his sleep apnea. The patient needs to follow up with his primary care doctor to get the results of his sleep apnea study. If his sleep apnea is uncontrolled, then that needs to be corrected for his daytime drowsiness. If it is controlled then an evaluation of his sedating medications may need to be undertaken. ER warnings were given. Departure - Departure Clinical Impression: Gastritis, Drowsiness Morbid obesity Qualifiers: Obesity type: due to excess calories Qualified Code(s): E66.01 - Morbid (severe ) obesity due to excess calories Disposition: Discharge to Home or Self Care Condition: Fair Departure Forms: ED Discharge - Pt. Copy, Patient Portal Self Enrollment Instructions: DI for Obstructive Sleep Apnea -- Adult, DI for Gastritis, DI for Peripheral Edema -- Bilateral Diet: low salt diet Activity: increase activity as tolerated Referrals: German Hassan MD [Primary Care Provider] - 1-2 Weeks Prescriptions: Ondansetron [Zofran Odt] 4 mg PO Q4H PRN #10 tab PRN Reason: Vomiting Home Medications: Ambulatory Orders Amlodipine Besylate [Norvasc] 10 mg PO DAILY 03/30/16 Aspirin [(None)] 325 mg PO DAILY 03/30/16 Atomoxetine HCl [Strattera] 40 mg PO 03/30/16 Citalopram Hydrobromide 40 mg PO DAILY 03/30/16 Lamotrigine [Lamictal] 03/30/16 Losartan Potassium 50 mg PO BID 03/30/16 Methylphenidate HCl [Methylphenidate HCl ER] 36 mg PO 03/30/16 Multiple Vitamins W/ Minerals [Multivitamin Adults] 1 unit PO DAILY 03/30/16 Oxcarbazepine [Trileptal] 300 mg PO BID 03/30/16 Pantoprazole Sodium [Protonix] 40 mg PO DAILY 03/30/16 Propranolol HCl [Inderal] 20 mg PO BID 03/30/16 Ibuprofen 800 mg PO Q8H PRN #30 tab 05/11/16 Acetaminophen [Tylenol] 500 mg PO PRN 10/14/16 Albuterol Inhaler [Ventolin Hfa Inhaler] 1 inh INH PRN 10/14/16 Budesonide (Nasal) [Rhinocort Allergy] 32 mcg NA DAILY 10/14/16 Chlorpheniramine Maleate 4 mg PO PRN 10/14/16 EPINEPHrine INJ [Epinephrine HCl] 0.3 mg IJ PRN 10/14/16 Fexofenadine HCl [Allergy 24-Hr] 180 mg PO DAILY 10/14/16 Fluticasone Furoate-Vilanterol [Breo Ellipta 200-25 Mcg/INH] 1 inh INH DAILY Trazodone HCl 100 mg PO BEDTIME 10/14/16 Ondansetron [Zofran Odt] 4 mg PO Q4H PRN #10 tab 10/19/16 Additional Instructions: the patient is a 46-year-old male presenting with gastric irritation from his diuretic. He can take a dose of Maalox with each dose of his diuretic. He will also be written for Zofran for as needed use to control the vomiting. For the edema he can also use compression stockings that he can obtain from [employer] or a medical supply store. He needs to reduce his salt intake. He also needs to have significant weight loss to reduce the edema as well as improve his sleep apnea. The patient needs to follow up with his primary care doctor to get the results of his sleep apnea study. If his sleep apnea is uncontrolled, then that needs to be corrected for his daytime drowsiness. If it is controlled then an evaluation of his sedating medications may need to be undertaken. ER warnings were given.
[2016-10-19 11:59] VITALS: BP 142/90; O2SAT 96
== END 2016-10-19 11:59 | disposition home or self-care (01) ==
LOC: ER 11:04
DX: K29.70 Gastritis, unspecified, without bleeding (principal); R40.0 Somnolence; I10 Essential (primary) hypertension; E66.01 Morbid (severe) obesity due to excess calories; Z79.899 Other long term (current) drug therapy; Z79.82 Long term (current) use of aspirin; Z88.0 Allergy status to penicillin; Z87.891 Personal history of nicotine dependence

== ENCOUNTER 2016-12-21 20:27 | Emergency (ER) | payer BC ==
[2016-12-21] MEDS ORDERED: PANTOPRAZOLE INJECTION 80 MG in SODIUM CHLORIDE 0.9% 100ML 80 ML IVPB ONE (20:41)
[2016-12-21] MEDS ORDERED: PROMETHAZINE HCL INJ 25 MG/ML VIAL IM ONE (20:41)
[2016-12-21] MEDS ORDERED: LACTATED RINGERS 1,000 ML IVS ONE (20:41)
--- NOTE | 2016-12-21 20:43 | ED.PDOC ---
History of Present Illness - General Chief Complaint: GI Problem Stated Complaint: vomitting for weeks, rectal bleeding for 2 days Time Seen by Provider: 12/21/16 20:40 Information Source: patient Exam Limitations: no limitations - History of Present Illness Initial Comments: Alex Sewell 46 y/o male stated that he had intermittent nausea vomiting for one week and 2 days ago had blood in stool.Denies hematemesis. Abdominal Pain Onset Location: unknown Pain Radiation: no radiation Quality: mild Timing/Duration: getting worse, other - one week Improving Factors: nothing Worsening Factors: eating Associated Symptoms: nausea/vomiting Review of Systems - Review of Systems Constitutional: States: no symptoms reported EENTM: States: no symptoms reported Respiratory: States: no symptoms reported Cardiology: States: no symptoms reported Gastrointestinal/Abdominal: States: see HPI Musculoskeletal: States: no symptoms reported Skin: States: no symptoms reported Neurological: States: emotional problems Past Medical History (General) - Patient Medical History Hx Seizures: No Hx Stroke: No Hx Dementia: No Hx Asthma: Yes Hx of COPD: No Hx Cardiac Disorders: No Hx Congestive Heart Failure: No Hx Pacemaker: No Hx Hypertension: Yes Hx Thyroid Disease: No Hx Diabetes: No Hx Gastroesophageal Reflux: No Hx Renal Disease: No Hx Cancer: No Hx of HIV: No Hx Hepatitis C: No Hx MRSA: No Hx Other PMH: Yes - bipolar ,adhd Surgical History: cholecystectomy, other - hernia repair - Vaccination History Hx Tetanus, Diphtheria Vaccination: Yes Hx Influenza Vaccination: Yes Hx Pneumococcal Vaccination: Yes - Social History Hx Tobacco Use: No Hx Chewing Tobacco Use: Yes Hx Alcohol Use: Yes Hx Substance Use: No Hx Substance Use Treatment: No Hx Depression: Yes Hx Physical Abuse: No Hx Emotional Abuse: No Hx Suspected Abuse: No - Female History Patient : No Family Medical History - Family History Mother Family History: No Known Living Status: Unknown Hx Family Congestive Heart Failure: Yes Hx Family Diabetes: Yes Physical Exam - Physical Exam General Appearance: Alert, No apparent distress Eyes, Ears, Nose, Throat Exam: PERRL/EOMI, normal ENT inspection, pharynx normal Neck: non-tender, full range of motion Respiratory: chest non-tender, lungs clear, normal breath sounds Cardiovascular/Chest: normal peripheral pulses, regular rate, rhythm, no murmur Peripheral Pulses: No deficit Gastrointestinal/Abdominal: normal bowel sounds, non tender, soft, no organomegaly, other - obese Rectal Exam: normal rectal tone, heme positive stool, other - rectal skin tags Back Exam: no CVA tenderness, no vertebral tenderness Extremity: normal range of motion, non-tender Neurologic: alert, normal mood/affect, oriented x 3 Skin Exam: normal color, warm/dry Lymphatic: no adenopathy Special Observations: Other - watching tv show Progress - Progress Progress: 12/21/16 23:00 Vital Signs - 8 hr 12/21/16 12/21/16 20:34 22:37 Temperature 98.0 F Pulse Rate [ 116 H 84 monitor] Respiratory 20 18 Rate Blood Pressure 161/96 170/102 [Right Arm] O2 Sat by Pulse 93 L Oximetry Laboratory Tests 12/21/16 12/21/16 12/21/16 21:00 21:00 21:00 WBC 11.9 H RBC 5.03 Hgb 14.9 Hct 44.5 MCV 88.5 MCH 29.7 MCHC 33.5 RDW 14.5 Plt Count 285 MPV 8.4 Absolute Neuts (auto) 8.80 H Absolute Lymphs (auto) 1.60 Absolute Monos (auto) 1.20 H Absolute Eos (auto) 0.20 Absolute Basos (auto) 0.10 Neutrophils % 74.5 Lymphocytes % 13.5 L Monocytes % 9.8 H Eosinophils % 1.6 Basophils % 0.6 Sodium 141 Potassium 4.2 Chloride 105 Carbon Dioxide 27 Anion Gap 13.2 BUN 16 Creatinine 0.80 BUN/Creatinine Ratio 20.0 Random Glucose 132 H Serum Osmolality 284.3 Calcium 9.1 Total Bilirubin 0.6 AST 69 H ALT 70 H Alkaline Phosphatase 99 Serum Total Protein 7.2 Albumin 4.2 Globulin 3.0 Albumin/Globulin Ratio 1.4 Lipase 29 Urine Color Urine Appearance Urine pH Ur Specific [place] Urine Protein Urine Glucose (UA) Urine Ketones Urine Blood Urine Nitrite Urine Bilirubin Urine Urobilinogen Ur Leukocyte Esterase Urine RBC Urine WBC Ur Epithelial Cells Urine Bacteria Urine Mucus Stool Occult Blood 12/21/16 12/21/16 21:42 21:42 WBC RBC Hgb Hct MCV MCH MCHC RDW Plt Count MPV Absolute Neuts (auto) Absolute Lymphs (auto) Absolute Monos (auto) Absolute Eos (auto) Absolute Basos (auto) Neutrophils % Lymphocytes % Monocytes % Eosinophils % Basophils % Sodium Potassium Chloride Carbon Dioxide Anion Gap BUN Creatinine BUN/Creatinine Ratio Random Glucose Serum Osmolality Calcium Total Bilirubin AST ALT Alkaline Phosphatase Serum Total Protein Albumin Globulin Albumin/Globulin Ratio Lipase Urine Color Yellow Urine Appearance Clear Urine pH 5.5 Ur Specific [place] >= 1.030 Urine Protein Negative Urine Glucose (UA) Negative Urine Ketones Trace Urine Blood Negative Urine Nitrite Negative Urine Bilirubin Negative Urine Urobilinogen 0.2 Ur Leukocyte Esterase Negative Urine RBC 0 Urine WBC 0-1 Ur Epithelial Cells 0 Urine Bacteria Rare Urine Mucus Trace Stool Occult Blood Positive 12/21/16 23:57 No further nausea /vomiting for the last 2 hours discuss lab work and result of ct scan abd/pelvis that he need to see gi specialist and stated primary md will get him referral as mentioned to him. - EKG/XRAY/CT CT Ordered: Yes - mild fatty liver no other acute abnormalities Departure - Departure Clinical Impression: Positive fecal occult blood test Nausea & vomiting Qualifiers: Vomiting type: unspecified Vomiting Intractability: non-intractable Qualified Code(s): R11.2 - Nausea with vomiting, unspecified Obesity Qualifiers: Obesity type: unspecified obesity type Obesity classification: adult class 3 ( BMI >= 40) Serious obesity comorbidity presence: unspecified whether serious comorbidity present Body mass index: BMI 40.0-44.9 Qualified Code(s): E66.9 - Obesity, unspecified; Z68.41 - Body mass index (BMI) 40.0-44.9, adult Time of Disposition: 00:00 Disposition: Discharge to Home or Self Care Condition: Good Departure Forms: ED Discharge - Pt. Copy, Patient Portal Self Enrollment Instructions: Nausea and Vomiting-Adult Diet: full liquid diet, other - avoid spicy,greasy foods Referrals: German Hassan MD [Primary Care Provider] - 1-2 Weeks Home Medications: Ambulatory Orders Amlodipine Besylate [Norvasc] 10 mg PO DAILY 03/30/16 Aspirin [(None)] 325 mg PO DAILY 03/30/16 Atomoxetine HCl [Strattera] 40 mg PO 03/30/16 Citalopram Hydrobromide 40 mg PO DAILY 03/30/16 Lamotrigine [Lamictal] 03/30/16 Losartan Potassium 50 mg PO BID 03/30/16 Methylphenidate HCl [Methylphenidate HCl ER] 36 mg PO 03/30/16 Multiple Vitamins W/ Minerals [Multivitamin Adults] 1 unit PO DAILY 03/30/16 Oxcarbazepine [Trileptal] 300 mg PO BID 03/30/16 Pantoprazole Sodium [Protonix] 40 mg PO DAILY 03/30/16 Propranolol HCl [Inderal] 20 mg PO BID 03/30/16 Ibuprofen 800 mg PO Q8H PRN #30 tab 05/11/16 Acetaminophen [Tylenol] 500 mg PO PRN 10/14/16 Albuterol Inhaler [Ventolin Hfa Inhaler] 1 inh INH PRN 10/14/16 Budesonide (Nasal) [Rhinocort Allergy] 32 mcg NA DAILY 10/14/16 Chlorpheniramine Maleate 4 mg PO PRN 10/14/16 EPINEPHrine INJ [Epinephrine HCl] 0.3 mg IJ PRN 10/14/16 Fexofenadine HCl [Allergy 24-Hr] 180 mg PO DAILY 10/14/16 Fluticasone Furoate-Vilanterol [Breo Ellipta 200-25 Mcg/INH] 1 inh INH DAILY Trazodone HCl 100 mg PO BEDTIME 10/14/16 Ondansetron [Zofran Odt] 4 mg PO Q4H PRN #10 tab 10/19/16 Esomeprazole Magnesium [Nexium] 40 mg PO 12/21/16 Additional Instructions: RETURN TO EMERGENCY ROOM NEEDED;Make appointment with your primary md in am 12/22/2016 call office Continue with all home meds
[2016-12-21 20:45] VITALS: TEMP 98
[2016-12-21] MEDS ORDERED: PANTOPRAZOLE SODIUM IV 40 MG VIAL ONE (20:56)
[2016-12-21] MEDS ORDERED: SODIUM CHLORIDE 0.9% 100ML 100 ML IVPB ONE (20:56)
--- NOTE | 2016-12-21 22:45 | CT ---
EXAM DESCRIPTION: Abdomen/Pelvis w/Contrast CLINICAL HISTORY: 46 years Male nausea/vomiting; rectal bleeding COMPARISON: 08/26/2016 TECHNIQUE: Contiguous axial images obtained through the abdomen and pelvis following IV contrast. Reformatted images obtained. This exam was performed according to our department optimization program which includes automated exposure control, adjustment of the mA and/or kv according to patient size and/or use of iterative reconstruction technique. FINDINGS: Mild enlargement of the liver with fatty infiltration. The spleen and pancreas appear unremarkable. No adrenal masses. The kidneys appear unremarkable. No hydronephrosis. The gallbladder is surgically absent. There are small scattered retroperitoneal and mesenteric lymph nodes which are nonspecific. No aneurysmal dilatation of the aorta. No bowel obstruction. The appendix is unremarkable. No significant free fluid noted. No evidence of colonic wall thickening. IMPRESSION: No acute abnormality is identified. Mildly enlarged fatty liver Electronically signed by: Jammie Morin 12/21/2016 10:43 PM CDT
[2016-12-21] MEDS ORDERED: SODIUM CHLORIDE 0.9% 1000ML 1,000 ML IVS ONE (22:55)
[2016-12-21] MEDS ORDERED: PROMETHAZINE HCL INJ 50 MG in SODIUM CHLORIDE 0.9% 50ML 50 ML IM ONE (22:56)
[2016-12-21] MEDS ORDERED: SODIUM CHLORIDE 0.9% 50ML 50 ML ONE (22:59)
[2016-12-21] MEDS ORDERED: PROMETHAZINE HCL INJ 25 MG/ML VIAL ONE (22:59)
[2016-12-22 00:44] VITALS: BP 155/87; O2SAT 94
== END 2016-12-22 00:20 | disposition home or self-care (01) ==
LOC: ER 20:27
DX: R11.2 Nausea with vomiting, unspecified (principal); R19.5 Other fecal abnormalities; E66.9 Obesity, unspecified; Z68.41 Body mass index [BMI] 40.0-44.9, adult; I10 Essential (primary) hypertension; F31.9 Bipolar disorder, unspecified; Z87.891 Personal history of nicotine dependence
CPT/HCPCS: 36415; 74177; 80053; 81001; 82270; 83690; 85025; A4216; J2550; J7030; J7050; J7120

== ENCOUNTER 2016-12-30 18:05 | Emergency (ER) | payer BC ==
[2016-12-30] MEDS ORDERED: LIDOCAINE VIS-MYLANTA 30 ML UD PO ONE (18:35)
[2016-12-30] MEDS ORDERED: SODIUM CHLORIDE 0.9% 1000ML 1,000 ML IVS ONE (19:12)
[2016-12-30] MEDS ORDERED: ONDANSETRON INJ 4 MG/2 ML VIAL IV ONE (19:20)
--- NOTE | 2016-12-30 19:24 | ED.PDOC ---
History of Present Illness - General Chief Complaint: Abdominal Pain Stated Complaint: abdominal pain,n/v Time Seen by Provider: 12/30/16 18:17 Source: patient Exam Limitations: no limitations - History of Present Illness Initial Comments: Patient presents with N/V/abdominal pain for two weeks. Pain is generalized but mostly LUQ. It is worse with eating and vomiting. He was seen for this in the ER 8 days ago for the same. A CT was done that showed no acute disease. He was ordered to follow up with his regular doctor for GI referral but he has not done that, yet. Timing/Duration: other - two weeks Severity: moderate Improving Factors: nothing Worsening Factors: eating Associated Symptoms: nausea/vomiting Allergies/Adverse Reactions: Allergies Penicillins Allergy (Verified 12/21/16 20:45) Home Medications: Ambulatory Orders Amlodipine Besylate [Norvasc] 10 mg PO DAILY 03/30/16 Aspirin [(None)] 325 mg PO DAILY 03/30/16 Atomoxetine HCl [Strattera] 40 mg PO 03/30/16 Citalopram Hydrobromide 40 mg PO DAILY 03/30/16 Lamotrigine [Lamictal] 03/30/16 Losartan Potassium 50 mg PO BID 03/30/16 Methylphenidate HCl [Methylphenidate HCl ER] 36 mg PO 03/30/16 Multiple Vitamins W/ Minerals [Multivitamin Adults] 1 unit PO DAILY 03/30/16 Oxcarbazepine [Trileptal] 300 mg PO BID 03/30/16 Pantoprazole Sodium [Protonix] 40 mg PO DAILY 03/30/16 Propranolol HCl [Inderal] 20 mg PO BID 03/30/16 Ibuprofen 800 mg PO Q8H PRN #30 tab 05/11/16 Acetaminophen [Tylenol] 500 mg PO PRN 10/14/16 Albuterol Inhaler [Ventolin Hfa Inhaler] 1 inh INH PRN 10/14/16 Budesonide (Nasal) [Rhinocort Allergy] 32 mcg NA DAILY 10/14/16 Chlorpheniramine Maleate 4 mg PO PRN 10/14/16 EPINEPHrine INJ [Epinephrine HCl] 0.3 mg IJ PRN 10/14/16 Fexofenadine HCl [Allergy 24-Hr] 180 mg PO DAILY 10/14/16 Fluticasone Furoate-Vilanterol [Breo Ellipta 200-25 Mcg/INH] 1 inh INH DAILY Trazodone HCl 100 mg PO BEDTIME 10/14/16 Ondansetron [Zofran Odt] 4 mg PO Q4H PRN #10 tab 10/19/16 Esomeprazole Magnesium [Nexium] 40 mg PO 12/21/16 Review of Systems - Review of Systems Constitutional: States: no symptoms reported EENTM: States: no symptoms reported Respiratory: States: no symptoms reported Cardiology: States: no symptoms reported Gastrointestinal/Abdominal: States: see HPI Genitourinary: States: no symptoms reported Musculoskeletal: States: no symptoms reported Skin: States: no symptoms reported Neurological: States: no symptoms reported Endocrine: States: no symptoms reported Hematologic/Lymphatic: States: no symptoms reported Past Medical History (General) - Patient Medical History Hx Seizures: No Hx Stroke: No Hx Dementia: No Hx Asthma: Yes Hx of COPD: No Hx Cardiac Disorders: No Hx Congestive Heart Failure: No Hx Pacemaker: No Hx Hypertension: Yes Hx Thyroid Disease: No Hx Diabetes: No Hx Gastroesophageal Reflux: No Hx Renal Disease: No Hx Cancer: No Hx of HIV: No Hx Hepatitis C: No Hx MRSA: No Surgical History: cholecystectomy - Vaccination History Hx Tetanus, Diphtheria Vaccination: Yes Hx Influenza Vaccination: Yes Hx Pneumococcal Vaccination: No - Social History Hx Tobacco Use: No Hx Chewing Tobacco Use: Yes Hx Alcohol Use: Yes Hx Substance Use: No Hx Substance Use Treatment: No Hx Depression: Yes Hx Physical Abuse: No Hx Emotional Abuse: No Hx Suspected Abuse: No - Female History Patient : No Family Medical History - Family History Mother Family History: No Known Living Status: Unknown Hx Family Congestive Heart Failure: Yes Hx Family Diabetes: Yes Physical Exam - Physical Exam General Appearance: Obvious distress Respiratory: lungs clear Cardiovascular/Chest: normal peripheral pulses, regular rate, rhythm Gastrointestinal/Abdominal: normal bowel sounds, non tender, soft Back Exam: no CVA tenderness Skin Exam: normal color Progress - Progress Progress: 12/30/16 20:04 Patient received Zofran 8 mg IV x one. He continued to have N/V for two hours. Electrolytes were normal. Vomitus was brown with no coffee ground emesis. Patient takes too many medications contraindicated with metoclopramide so that was not tried. He received NS one liter IV x one. He was transferred to [facility] for intractable N/V and possible inpatient GI consult. Departure - Departure Clinical Impression: Intractable nausea and vomiting Disposition: Transfer to Hospital Condition: Fair Departure Forms: ED Discharge - Pt. Copy, Patient Portal Self Enrollment Instructions: DI for Abdominal Pain-Adult Diet: other - NPO Activity: increase activity as tolerated Referrals: German Hassan MD [Primary Care Provider] - 1-2 Weeks Home Medications: Ambulatory Orders Amlodipine Besylate [Norvasc] 10 mg PO DAILY 03/30/16 Aspirin [(None)] 325 mg PO DAILY 03/30/16 Atomoxetine HCl [Strattera] 40 mg PO 03/30/16 Citalopram Hydrobromide 40 mg PO DAILY 03/30/16 Lamotrigine [Lamictal] 03/30/16 Losartan Potassium 50 mg PO BID 03/30/16 Methylphenidate HCl [Methylphenidate HCl ER] 36 mg PO 03/30/16 Multiple Vitamins W/ Minerals [Multivitamin Adults] 1 unit PO DAILY 03/30/16 Oxcarbazepine [Trileptal] 300 mg PO BID 03/30/16 Pantoprazole Sodium [Protonix] 40 mg PO DAILY 03/30/16 Propranolol HCl [Inderal] 20 mg PO BID 03/30/16 Ibuprofen 800 mg PO Q8H PRN #30 tab 05/11/16 Acetaminophen [Tylenol] 500 mg PO PRN 10/14/16 Albuterol Inhaler [Ventolin Hfa Inhaler] 1 inh INH PRN 10/14/16 Budesonide (Nasal) [Rhinocort Allergy] 32 mcg NA DAILY 10/14/16 Chlorpheniramine Maleate 4 mg PO PRN 10/14/16 EPINEPHrine INJ [Epinephrine HCl] 0.3 mg IJ PRN 10/14/16 Fexofenadine HCl [Allergy 24-Hr] 180 mg PO DAILY 10/14/16 Fluticasone Furoate-Vilanterol [Breo Ellipta 200-25 Mcg/INH] 1 inh INH DAILY Trazodone HCl 100 mg PO BEDTIME 10/14/16 Ondansetron [Zofran Odt] 4 mg PO Q4H PRN #10 tab 10/19/16 Esomeprazole Magnesium [Nexium] 40 mg PO 12/21/16
[2016-12-30 21:21] VITALS: TEMP 99
[2016-12-30 21:51] VITALS: BP 151/87; O2SAT 96
== END 2016-12-30 21:25 | disposition short-term general hospital (02) ==
LOC: ER 18:05
DX: R11.2 Nausea with vomiting, unspecified (principal); J45.909 Unspecified asthma, uncomplicated; I10 Essential (primary) hypertension; F17.220 Nicotine dependence, chewing tobacco, uncomplicated; Z88.0 Allergy status to penicillin; Z79.82 Long term (current) use of aspirin; Z79.899 Other long term (current) drug therapy
CPT/HCPCS: 36415; 80053; 81001; 83690; 85025; J2405; J7030

== ENCOUNTER 2017-02-05 15:54 | Emergency (ER) | payer BC ==
--- NOTE | 2017-02-05 16:27 | ED.PDOC ---
History of Present Illness - General Chief Complaint: General Stated Complaint: refill meds Time Seen by Provider: 02/05/17 15:56 Source: patient Exam Limitations: no limitations - History of Present Illness Initial Comments: Alex Sewell 47 y/o male with history of bipolar disorder,ADHD stated that he misplaced his medication since last week and unable to get it refilled advised to come here.Patient concerned that he might have exacerbation of his symptoms if he could not get his medications. Timing/Duration: other - 5-7 days Severity: moderate Worsening Factors: nothing Associated Symptoms: denies symptoms Allergies/Adverse Reactions: Allergies Penicillins Allergy (Verified 12/21/16 20:45) Home Medications: Ambulatory Orders Amlodipine Besylate [Norvasc] 10 mg PO DAILY 03/30/16 Aspirin [(None)] 325 mg PO DAILY 03/30/16 Atomoxetine HCl [Strattera] 40 mg PO 03/30/16 Citalopram Hydrobromide 40 mg PO DAILY 03/30/16 Lamotrigine [Lamictal] 03/30/16 Losartan Potassium 50 mg PO BID 03/30/16 Methylphenidate HCl [Methylphenidate HCl ER] 36 mg PO 03/30/16 Multiple Vitamins W/ Minerals [Multivitamin Adults] 1 unit PO DAILY 03/30/16 Oxcarbazepine [Trileptal] 300 mg PO BID 03/30/16 Pantoprazole Sodium [Protonix] 40 mg PO DAILY 03/30/16 Propranolol HCl [Inderal] 20 mg PO BID 03/30/16 Ibuprofen 800 mg PO Q8H PRN #30 tab 05/11/16 Acetaminophen [Tylenol] 500 mg PO PRN 10/14/16 Albuterol Inhaler [Ventolin Hfa Inhaler] 1 inh INH PRN 10/14/16 Budesonide (Nasal) [Rhinocort Allergy] 32 mcg NA DAILY 10/14/16 Chlorpheniramine Maleate 4 mg PO PRN 10/14/16 EPINEPHrine INJ [Epinephrine HCl] 0.3 mg IJ PRN 10/14/16 Fexofenadine HCl [Allergy 24-Hr] 180 mg PO DAILY 10/14/16 Fluticasone Furoate-Vilanterol [Breo Ellipta 200-25 Mcg/INH] 1 inh INH DAILY Trazodone HCl 100 mg PO BEDTIME 10/14/16 Ondansetron [Zofran Odt] 4 mg PO Q4H PRN #10 tab 10/19/16 Esomeprazole Magnesium [Nexium] 40 mg PO 12/21/16 Citalopram Hydrobromide 40 mg PO DAILY #7 tab 02/05/17 OXcarbazepine [Trileptal] 300 mg PO BID #14 tab 02/05/17 Propranolol HCl [Inderal] 20 mg PO BID #14 tab 02/05/17 Trazodone HCl 100 mg PO BEDTIME #7 tab 02/05/17 Review of Systems - Review of Systems Constitutional: States: no symptoms reported EENTM: States: no symptoms reported Respiratory: States: no symptoms reported Cardiology: States: no symptoms reported Gastrointestinal/Abdominal: States: no symptoms reported Neurological: States: emotional problems - pre-existing Past Medical History (General) - Patient Medical History Hx Seizures: No Hx Stroke: No Hx Dementia: No Hx Asthma: Yes Hx of COPD: No Hx Cardiac Disorders: No Hx Congestive Heart Failure: No Hx Pacemaker: No Hx Hypertension: Yes Hx Thyroid Disease: No Hx Diabetes: No Hx Gastroesophageal Reflux: No Hx Renal Disease: No Hx Cancer: No Hx of HIV: No Hx Hepatitis C: No Hx MRSA: No Surgical History: cholecystectomy, other - hernia repair - Vaccination History Hx Tetanus, Diphtheria Vaccination: Yes Hx Influenza Vaccination: Yes Hx Pneumococcal Vaccination: No - Social History Hx Tobacco Use: No Hx Chewing Tobacco Use: Yes Hx Alcohol Use: Yes Hx Substance Use: No Hx Substance Use Treatment: No Hx Depression: Yes Hx Physical Abuse: No Hx Emotional Abuse: No Hx Suspected Abuse: No - Female History Patient : No Family Medical History - Family History Mother Family History: No Known Living Status: Unknown Hx Family Congestive Heart Failure: Yes Hx Family Diabetes: Yes Physical Exam - Physical Exam General Appearance: Alert, No apparent distress Eye Exam: bilateral normal Ears, Nose, Throat: hearing grossly normal, normal ENT inspection Neck: non-tender, supple Respiratory: lungs clear, normal breath sounds Cardiovascular/Chest: normal peripheral pulses, regular rate, rhythm, no murmur Gastrointestinal/Abdominal: non tender, soft, no organomegaly, other - obese Back Exam: no vertebral tenderness Extremity: no pedal edema, no calf tenderness Neurologic: alert, normal mood/affect, oriented x 3 Skin Exam: normal color, warm/dry Lymphatic: axilla node tender (R) Departure - Departure Clinical Impression: Encounter for medication refill, Family history of bipolar disorder Time of Disposition: 17:13 Disposition: Discharge to Home or Self Care Condition: Fair Referrals: German Hassan MD [Primary Care Provider] - 1-2 Weeks Prescriptions: Citalopram Hydrobromide 40 mg PO DAILY #7 tab OXcarbazepine [Trileptal] 300 mg PO BID #14 tab Propranolol HCl [Inderal] 20 mg PO BID #14 tab Trazodone HCl 100 mg PO BEDTIME #7 tab Home Medications: Ambulatory Orders Amlodipine Besylate [Norvasc] 10 mg PO DAILY 03/30/16 Aspirin [(None)] 325 mg PO DAILY 03/30/16 Atomoxetine HCl [Strattera] 40 mg PO 03/30/16 Citalopram Hydrobromide 40 mg PO DAILY 03/30/16 Lamotrigine [Lamictal] 03/30/16 Losartan Potassium 50 mg PO BID 03/30/16 Methylphenidate HCl [Methylphenidate HCl ER] 36 mg PO 03/30/16 Multiple Vitamins W/ Minerals [Multivitamin Adults] 1 unit PO DAILY 03/30/16 Oxcarbazepine [Trileptal] 300 mg PO BID 03/30/16 Pantoprazole Sodium [Protonix] 40 mg PO DAILY 03/30/16 Propranolol HCl [Inderal] 20 mg PO BID 03/30/16 Ibuprofen 800 mg PO Q8H PRN #30 tab 05/11/16 Acetaminophen [Tylenol] 500 mg PO PRN 10/14/16 Albuterol Inhaler [Ventolin Hfa Inhaler] 1 inh INH PRN 10/14/16 Budesonide (Nasal) [Rhinocort Allergy] 32 mcg NA DAILY 10/14/16 Chlorpheniramine Maleate 4 mg PO PRN 10/14/16 EPINEPHrine INJ [Epinephrine HCl] 0.3 mg IJ PRN 10/14/16 Fexofenadine HCl [Allergy 24-Hr] 180 mg PO DAILY 10/14/16 Fluticasone Furoate-Vilanterol [Breo Ellipta 200-25 Mcg/INH] 1 inh INH DAILY Trazodone HCl 100 mg PO BEDTIME 10/14/16 Ondansetron [Zofran Odt] 4 mg PO Q4H PRN #10 tab 10/19/16 Esomeprazole Magnesium [Nexium] 40 mg PO 12/21/16 Citalopram Hydrobromide 40 mg PO DAILY #7 tab 02/05/17 OXcarbazepine [Trileptal] 300 mg PO BID #14 tab 02/05/17 Propranolol HCl [Inderal] 20 mg PO BID #14 tab 02/05/17 Trazodone HCl 100 mg PO BEDTIME #7 tab 02/05/17 Additional Instructions: NEED TO CALL [facility] Wednesday02/08/2017
[2017-02-05 16:45] VITALS: BP 127/89; TEMP 99.7; O2SAT 94
== END 2017-02-05 17:30 | disposition home or self-care (01) ==
LOC: ER 15:54
DX: Z76.0 Encounter for issue of repeat prescription (principal); F31.9 Bipolar disorder, unspecified; F90.9 Attention-deficit hyperactivity disorder, unspecified type; I10 Essential (primary) hypertension; Z88.0 Allergy status to penicillin; Z79.82 Long term (current) use of aspirin; Z79.899 Other long term (current) drug therapy

== ENCOUNTER 2017-08-18 00:20 | Observation (INO) | payer SELFPAY ==
[2017-08-18] MEDS ORDERED: SODIUM CHLORIDE 0.9% (FLUSH) 10 ML SYG IV PRN ×2 (00:33→04:51)
--- NOTE | 2017-08-18 00:35 | ED.PDOC ---
History of Present Illness - General Chief Complaint: Chest Pain/GA Stated Complaint: chest tightness Time Seen by Provider: 08/18/17 00:21 Source: patient Exam Limitations: no limitations - History of Present Illness Initial Comments: Alex Sewell 47 y/o male stated that he was watching tv 3-4 hours ago and had sudden onset of chest tightness radiated to right side of neck and head then followed by headache stated got sweaty then took 2 buffered aspirin tried to rest for 2 hours he went to bed but his chest tightness not relieved and decided to drive himself to er but on the way he was driving erratically and was stopped by foreign policy officer telling he had chest tightness and officer called up ambulance he was given 2 tablets of baby aspirin and nitroglycerin which eased off his chest tightness on arrival here at ER.Stated had been out of his medications since brother not paying his health insurance premium 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 Timing/Duration: 1-3 hours Severity: moderate Location: central Activities at Onset: rest Prior Chest Pain/Cardiac Workup: no prior chest pain Improving Factors: nothing Worsening Factors: nothing Nitro Today/Relief: 0.4 mg x 1, provided by EMS, complete relief Aspirin Treatment Today: 81 mg x 4 Associated Symptoms: diaphoresis Allergies/Adverse Reactions: Allergies Penicillins Allergy (Verified 12/21/16 20:45) Home Medications: Ambulatory Orders Amlodipine Besylate [Norvasc] 10 mg PO DAILY 03/30/16 Aspirin [(None)] 325 mg PO DAILY 03/30/16 Atomoxetine HCl [Strattera] 40 mg PO 03/30/16 Citalopram Hydrobromide 40 mg PO DAILY 03/30/16 Lamotrigine [Lamictal] 03/30/16 Losartan Potassium 50 mg PO BID 03/30/16 Methylphenidate HCl [Methylphenidate HCl ER] 36 mg PO 03/30/16 Multiple Vitamins W/ Minerals [Multivitamin Adults] 1 unit PO DAILY 03/30/16 Oxcarbazepine [Trileptal] 300 mg PO BID 03/30/16 Pantoprazole Sodium [Protonix] 40 mg PO DAILY 03/30/16 Propranolol HCl [Inderal] 20 mg PO BID 03/30/16 Ibuprofen 800 mg PO Q8H PRN #30 tab 05/11/16 Acetaminophen [Tylenol] 500 mg PO PRN 10/14/16 Albuterol Inhaler [Ventolin Hfa Inhaler] 1 inh INH PRN 10/14/16 Budesonide (Nasal) [Rhinocort Allergy] 32 mcg NA DAILY 10/14/16 Chlorpheniramine Maleate 4 mg PO PRN 10/14/16 EPINEPHrine INJ [Epinephrine HCl] 0.3 mg IJ PRN 10/14/16 Fexofenadine HCl [Allergy 24-Hr] 180 mg PO DAILY 10/14/16 Fluticasone Furoate-Vilanterol [Breo Ellipta 200-25 Mcg/INH] 1 inh INH DAILY Trazodone HCl 100 mg PO BEDTIME 10/14/16 Ondansetron [Zofran Odt] 4 mg PO Q4H PRN #10 tab 10/19/16 Esomeprazole Magnesium [Nexium] 40 mg PO 12/21/16 Citalopram Hydrobromide 40 mg PO DAILY #7 tab 02/05/17 OXcarbazepine [Trileptal] 300 mg PO BID #14 tab 02/05/17 Propranolol HCl [Inderal] 20 mg PO BID #14 tab 02/05/17 Trazodone HCl 100 mg PO BEDTIME #7 tab 02/05/17 Review of Systems - Review of Systems EENTM: States: no symptoms reported Respiratory: States: no symptoms reported Cardiology: States: see HPI Gastrointestinal/Abdominal: States: no symptoms reported Genitourinary: States: no symptoms reported Musculoskeletal: States: no symptoms reported Neurological: States: emotional problems Past Medical History (General) - Patient Medical History Hx Seizures: No Hx Stroke: No Hx Dementia: No Hx Asthma: Yes Hx of COPD: No Hx Cardiac Disorders: No Hx Congestive Heart Failure: No Hx Pacemaker: No Hx Hypertension: Yes Hx Thyroid Disease: No Hx Diabetes: No Hx Gastroesophageal Reflux: No Hx Renal Disease: No Hx Cancer: No Hx of HIV: No Hx Hepatitis C: No Hx MRSA: No Hx Other PMH: Yes - bipolar disorder Surgical History: cholecystectomy, other - hernia repair - Vaccination History Hx Tetanus, Diphtheria Vaccination: Yes Hx Influenza Vaccination: Yes Hx Pneumococcal Vaccination: No - Social History Hx Tobacco Use: No Hx Chewing Tobacco Use: Yes Hx Alcohol Use: Yes Hx Substance Use: No Hx Substance Use Treatment: No Hx Depression: Yes Hx Physical Abuse: No Hx Emotional Abuse: No Hx Suspected Abuse: No - Female History Patient : No Family Medical History - Family History Mother Family History: No Known Living Status: Unknown Hx Family Congestive Heart Failure: Yes - mom Hx Family Diabetes: Yes Hx Family Cancer: Yes - dad-pancreas Physical Exam - Physical Exam General Appearance: Alert, Comfortable, No apparent distress Eyes, Ears, Nose, Throat Exam: normal ENT inspection, pharynx normal Neck: full range of motion, supple Respiratory: chest non-tender, lungs clear, normal breath sounds Cardiovascular/Chest: normal peripheral pulses, regular rate, rhythm, no murmur Peripheral Pulses: radial,right: 2+, radial,left: 2+ Gastrointestinal/Abdominal: normal bowel sounds, non tender, soft Extremity: no pedal edema, no calf tenderness Neurologic: alert, oriented x 3 Skin Exam: normal color, warm/dry Progress - Progress Progress: 08/18/17 01:42 Vital Signs - 24 hr 08/18/17 08/18/17 08/18/17 00:37 01:01 01:09 Temperature 99.1 F Pulse Rate [ 95 H left] Respiratory 16 Rate Blood Pressure 159/113 149/113 [left] O2 Sat by Pulse 96 97 Oximetry - Results/Orders Results/Orders: 08/18/17 00:33 IV Care:Saline Lock per Protoc QSHIFT Telemetry .ONCE Sodium Chloride 0.9% (Flush) [Saline Flush Syringe] 10 ml IV PRN PRN EKG Stat Pulse Ox Stat Laboratory Results - last 24 hr 08/18/17 08/18/17 00:10 00:10 WBC 11.9 H RBC 5.22 Hgb 15.4 Hct 45.6 MCV 87.3 MCH 29.6 MCHC 33.9 RDW 14.2 Plt Count 308 MPV 8.3 Absolute Neuts (auto) 7.70 H Absolute Lymphs (auto) 2.60 Absolute Monos (auto) 1.20 H Absolute Eos (auto) 0.20 Absolute Basos (auto) 0.10 Neutrophils % 65.2 Lymphocytes % 22.3 Monocytes % 10.0 H Eosinophils % 1.8 Basophils % 0.7 PT 11.6 INR 1.000 PTT (SP) 33.1 D-Dimer, Quantitative < 230 Sodium 136 Potassium 3.8 Chloride 103 Carbon Dioxide 24 Anion Gap 12.8 BUN 10 Creatinine 0.72 BUN/Creatinine Ratio 13.9 Random Glucose 101 Serum Osmolality 271.1 L Calcium 9.2 Magnesium 1.9 Creatine Kinase 105 CK-MB (CK-2) 3.5 CK-MB (CK-2) % Not Reportable Troponin I < 0.02 B-Natriuretic Peptide < 5.0 - EKG/XRAY/CT EKG: Sinus, nonspecific ST T wave Chg - ant leads Comments: HR-90 XRAY: chest - normal chest Departure - Departure Clinical Impression: Chest tightness or pressure Time of Disposition: : Disposition: Admit Patient Condition: Fair Departure Forms: Patient Portal Self Enrollment Referrals: German Hassna MD [Primary Care Provider] - 1-2 Weeks Home Medications: Ambulatory Orders Amlodipine Besylate [Norvasc] 10 mg PO DAILY 03/30/16 Aspirin [(None)] 325 mg PO DAILY 03/30/16 Atomoxetine HCl [Strattera] 40 mg PO 03/30/16 Citalopram Hydrobromide 40 mg PO DAILY 03/30/16 Lamotrigine [Lamictal] 03/30/16 Losartan Potassium 50 mg PO BID 03/30/16 Methylphenidate HCl [Methylphenidate HCl ER] 36 mg PO 03/30/16 Multiple Vitamins W/ Minerals [Multivitamin Adults] 1 unit PO DAILY 03/30/16 Oxcarbazepine [Trileptal] 300 mg PO BID 03/30/16 Pantoprazole Sodium [Protonix] 40 mg PO DAILY 03/30/16 Propranolol HCl [Inderal] 20 mg PO BID 03/30/16 Ibuprofen 800 mg PO Q8H PRN #30 tab 05/11/16 Acetaminophen [Tylenol] 500 mg PO PRN 10/14/16 Albuterol Inhaler [Ventolin Hfa Inhaler] 1 inh INH PRN 10/14/16 Budesonide (Nasal) [Rhinocort Allergy] 32 mcg NA DAILY 10/14/16 Chlorpheniramine Maleate 4 mg PO PRN 10/14/16 EPINEPHrine INJ [Epinephrine HCl] 0.3 mg IJ PRN 10/14/16 Fexofenadine HCl [Allergy 24-Hr] 180 mg PO DAILY 10/14/16 Fluticasone Furoate-Vilanterol [Breo Ellipta 200-25 Mcg/INH] 1 inh INH DAILY Trazodone HCl 100 mg PO BEDTIME 10/14/16 Ondansetron [Zofran Odt] 4 mg PO Q4H PRN #10 tab 10/19/16 Esomeprazole Magnesium [Nexium] 40 mg PO 12/21/16 Citalopram Hydrobromide 40 mg PO DAILY #7 tab 02/05/17 OXcarbazepine [Trileptal] 300 mg PO BID #14 tab 02/05/17 Propranolol HCl [Inderal] 20 mg PO BID #14 tab 02/05/17 Trazodone HCl 100 mg PO BEDTIME #7 tab 02/05/17 Decision To Admit - Decistion To Admit Decision to Admit Reason: Admit from ER Decision to Admit Date: 08/18/17 - D/W Boyd Watt-ANP/Hospitalist Decision to Admit Time: 02:27
[2017-08-18] MEDS ORDERED: LABETALOL INJ 5 MG/ML VIAL IV ONE (01:04)
--- NOTE | 2017-08-18 01:13 | RAD ---
EXAM: AP CHEST RADIOGRAPH CLINICAL INDICATION: Acute chest pain. COMPARISON: Chest radiographs of October 14, 2016. FINDINGS: Cardiac size and pulmonary vasculature are normal. Lungs are clear. No pleural effusions or pneumothorax. No hilar or mediastinal lymphadenopathy. No mediastinal widening. No extraluminal bowel gas under the hemidiaphragms. Bones are intact on this single view. IMPRESSION: Normal portable AP chest radiograph. Electronically signed by: Italo Adan MD 08/18/2017 1:12 AM CDT
[2017-08-18] MEDS ORDERED: ACETAMINOPHEN 325 MG TAB PO ONE (02:28)
[2017-08-18] MEDS ORDERED: amLODIPine BESYLATE 5 MG TAB PO ONE (02:30)
[2017-08-18] MEDS ORDERED: LOSARTAN POTASSIUM 25 MG TAB PO ONE (02:40)
--- NOTE | 2017-08-18 02:50 | HP ---
SUPERVISING PHYSICIAN: German Hassan MD CHIEF COMPLAINT: Chest pain. HISTORY OF PRESENT ILLNESS: This is a 47-year-old male patient who was watching TV last night and had sudden onset of chest tightness that radiates to the right side of his neck. It was also followed by a headache. He also had some diaphoresis. He took 2 aspirin at home, rested several hours and the chest pain continued. He was on the way to the Emergency Room, driving erratically and was stopped by a mounted police. The mounted police called an ambulance. He was given 2 tablets of baby aspirin and nitroglycerin that eased his chest tightness and was brought to our Emergency Room. In the Emergency Room, he stated he had been out of his medications for several months and there were concerns about his brother paying his medical insurance as well as paying his pharmacy bill. In the Emergency Room, his initial cardiac enzymes were negative with a troponin of less than 0.02. He had no further complaints of chest pain and the patient was placed in observation in the hospital. PAST MEDICAL HISTORY: 1. Bipolar disorder. 2. Gastroesophageal reflux diseased. 3. Moderate asthma. 4. Obstructive sleep apnea. 5. Hypertension. 6. Peptic ulcer disease. PAST SURGICAL HISTORY: 1. Cholecystectomy. 2. Cataract removal. 3. Hernia repair in 2013. 4. Left shoulder surgery. OUTPATIENT MEDICATIONS: Per the EMR and awaiting verification. ALLERGIES: SEROQUEL AND LOTREL. FAMILY HISTORY: Positive for hypertension. SOCIAL HISTORY: He is unemployed. He is single. He has never smoked cigarettes, but uses smokeless tobacco occasionally. He drinks alcoholic beverages very infrequently and denies any illicit drug use. REVIEW OF SYSTEMS: GENERAL: Positive for fatigue. Negative for fever or weight changes. HEENT: Negative for ear pain, vision changes, sinus symptoms or sore throat. RESPIRATORY: Negative for wheezing, coughing or shortness of breath. CARDIAC: Positive for chest pain on admission to the Emergency Room. He has had no further complaints of chest pain since admission. Negative for palpitations or tachycardia. GASTROINTESTINAL: Negative for nausea, vomiting, diarrhea, constipation. NEUROLOGIC: Negative for headache, dizziness or seizures. EXTREMITIES: Negative for lower extremity edema. PHYSICAL EXAMINATION: VITAL SIGNS: Afebrile. Heart rate 88. Blood pressure 103/63. Respiratory rate 19. O2 saturation 95% on room air. GENERAL: This is a 47-year-old obese male patient lying in his hospital bed. He is in no acute distress. HEENT: Normocephalic, atraumatic. Pupils are equal and reactive. Oropharynx is clear. Oral mucous membranes are moist. NECK: Supple without mass. No discernible jugular venous distention. RESPIRATORY: Essentially clear to auscultation bilaterally. CARDIOVASCULAR: Regular rate and rhythm. GASTROINTESTINAL: Abdomen is soft, nondistended, nontender. Bowel sounds are positive. EXTREMITIES: Trace pedal edema bilaterally. No cyanosis or clubbing. NEUROLOGIC: Awake, alert and oriented times three although he has a very difficult time with complicated questions. He is very focused on the fact that his brother has not paid his insurance and he has not been able to get his medications for several months. LABORATORY: His metabolic panel is basically within normal limits with the exception of serum osmolality is slightly low at 271.1. His first two sets of cardiac enzymes are negative. WBCs are 11.9, hemoglobin 15.4, hematocrit 45.6, platelet count 308, neutrophils 65.6. D-Dimer is less than 230, PT 11.6, INR 1 , PT-T 33.1. Chest x-ray per radiologic interpretation shows normal portable AP chest radiograph. All other labs and films have been reviewed via the EMR. ASSESSMENT: 1. Chest pain, rule out myocardial infarction, negative troponins. Ejection fraction is 68% on echocardiogram from 08/31. 2. Poor medical compliance, maybe related to his psychiatric issues. He has not taken any medication since January of 2017. 3. Hypertension. 4. Asthma. 5. Obstructive sleep apnea. 6. Bipolar disorder with anxiety. PLAN: We will place the patient is observation. So far, he has had no complaints of chest pain and his cardiac enzymes are negative. Upon investigation, he has not taken any medications since January of 2017 when his mother . He has had no one to help him with his medications nor his routine expenses. Director Instrumentation has been consulted and they are talking to the brother who lives in [place] and are trying to get his medical issues taken care of. He is on several medications that he had gotten from [facility] which are trazodone, Celexa, Trileptal and lamotrigine. I will restart those. He also has some antihypertensive and since his blood pressure has been fairly well controlled without his medication, I will start him on a low dose of propranolol 10 mg b.i.d. I will also restart his albuterol treatments. Our plan is to get the absolute needed medications for him at this time and to followup with Dr. Hassan, his primary care physician. I am not sure why he is not on disability as the patient is mentally unable to take care of his affairs , but we will address that as an outpatient. We will monitor the patient closely and follow as needed. Dr. Hassan is the collaborating physician and available for consultation. #[id number] [facility]
[2017-08-18] MEDS ORDERED: MORPHINE SULFATE INJ 10 MG/ML VIAL IV PRN (04:51)
[2017-08-18] MEDS ORDERED: ACETAMINOPHEN 325 MG TAB PO PRN (04:51)
[2017-08-18] MEDS ORDERED: NITROGLYCERIN 0.4 MG 25 EA TAB SL PRN (04:51)
[2017-08-18] MEDS ORDERED: IV SET AND CAP CHANGE INJ INJ SCH (05:00)
[2017-08-18] MEDS ORDERED: POTASSIUM CHLORIDE INJ 20 MEQ 20 MEQ in SODIUM CHLORIDE 0.45% 1000ML 1,000 ML IVS PRN (05:12)
[2017-08-18] MEDS ORDERED: KCL 20MEQ/0.45% NS 1,000 ML IVS ONE (06:35)
[2017-08-18] MEDS ORDERED: KCL 20MEQ/0.45% NS 1,000 ML IVS PRN ×2 (08:00)
[2017-08-18] MEDS ORDERED: ASPIRIN TABLET 325 MG TAB ONE (08:17)
[2017-08-18] MEDS: SODIUM CHLORIDE 0.9% (FLUSH) 10 ML SYG IV SCH ×2 (08:36→20:36)
[2017-08-18] MEDS ORDERED: LOSARTAN POTASSIUM 25 MG TAB PO SCH (09:00)
[2017-08-18] MEDS ORDERED: ALBUTEROL SULFATE 2.5 MG/3 ML VIAL NEB PRN (11:25)
[2017-08-18] MEDS: ALBUTEROL SULFATE 2.5 MG/3 ML VIAL NEB SCH ×3 (11:37→20:12)
[2017-08-18] MEDS: CITALOPRAM HBR 20 MG TAB PO SCH (12:11)
[2017-08-18] MEDS: lamoTRIgine 25 MG TAB PO SCH (12:13)
[2017-08-18] MEDS: PROPRANOLOL HCL 20 MG TAB PO SCH ×2 (12:15→20:36)
[2017-08-18] MEDS: OXcarbazepine 300 MG TAB PO SCH ×2 (12:15→20:36)
[2017-08-18] MEDS: traZODone HCL 100 MG TAB PO SCH (20:36)
[2017-08-19] MEDS: ALBUTEROL SULFATE 2.5 MG/3 ML VIAL NEB SCH ×4 (07:24→20:54)
[2017-08-19] MEDS: PROPRANOLOL HCL 20 MG TAB PO SCH ×2 (09:34→20:58)
[2017-08-19] MEDS: CITALOPRAM HBR 20 MG TAB PO SCH (09:34)
[2017-08-19] MEDS: lamoTRIgine 25 MG TAB PO SCH (09:34)
[2017-08-19] MEDS: OXcarbazepine 300 MG TAB PO SCH ×2 (09:34→20:57)
[2017-08-19] MEDS: SODIUM CHLORIDE 0.9% (FLUSH) 10 ML SYG IV SCH ×2 (09:35→20:58)
[2017-08-19] MEDS: ASPIRIN TABLET 325 MG TAB PO SCH (09:35)
--- NOTE | 2017-08-19 13:40 | PN ---
SUPERVISING PHYSICIAN: German Hassan MD DATE: 08/19/17 SUBJECTIVE: The patient is sitting up in his hospital room. He is feeling much better today. He denies any nausea, vomiting, coughing, shortness of breath, wheezing or chest pain. He is very pleased that he is back on his regular medications. Irrigation Equipment Remover and I along with the patient's brother, Jose Sewell , had a lengthy discussion about the plan of care for Mr. Sewell. Irrigation Equipment Remover is in the process of helping him with his medications as well as his insurance. OBJECTIVE: VITAL SIGNS: He is afebrile. Heart rate 65. Blood pressure 157/ 77. Respiratory rate 18. O2 saturation 93% on room air. RESPIRATORY: Essentially clear to auscultation bilaterally. He is slightly diminished at the bases. CARDIAC: Regular rate and rhythm. GASTROINTESTINAL: Abdomen is soft, nondistended, nontender. Bowel sounds are positive. EXTREMITIES: There is a trace of pedal edema bilaterally. Pulses are palpable. There is no cyanosis or clubbing. NEUROLOGIC: Awake, alert and oriented times three. The patient can get slightly confused at times. LABORATORY: His third set of cardiac enzymes from yesterday were negative. Otherwise, there are no labs or films to report at this time. ASSESSMENT: 1. Chest pain, rule out myocardial infarction with negative troponins on serial cardiac enzymes. Ejection fraction is 68% per echocardiogram from 08/31. 2. Poor medical compliance, maybe related to his psychiatric issues. Prior to admission, he had not taken any medication since January of 2017. 3. Hypertension. 4. Asthma. 5. Obstructive sleep apnea. 6. Bipolar disorder with anxiety. PLAN: We will continue present supportive care. After a lengthy discussion with the patient's brother, Jose Sewell, as well as Irrigation Equipment Remover, we have a plan in place for his discharge to get his medications at [facility]. I will speak to the pharmacist there and will communicate with Jose Sewell, the patient's brother, as far as the financial issues concerned. Irrigation Equipment Remover is attempting to get his insurance and legal issues resolved at this time. I have given the patient's brother my cell phone and he can call for any problems in regard to the patient's medications. I will discuss it with his primary care physician, Dr. Hassan, about his plan of care. Otherwise, he will have a CBC in the morning to check his WBC and hopefully we can discharge him tomorrow with close followup with Irrigation Equipment Remover as well as his primary care physician. His blood pressure is slightly elevated, so I will increase his propranolol to [address] Hassan is the collaborating physician and available for consultation. #[id number] [facility]
[2017-08-19] MEDS: traZODone HCL 100 MG TAB PO SCH (20:57)
[2017-08-20] MEDS ORDERED: CETIRIZINE HCL 10 MG TAB PO ONE (02:15)
[2017-08-20] MEDS ORDERED: diphenhydrAMINE HCL 25 MG CAP PO ONE (03:37)
[2017-08-20] MEDS: ALBUTEROL SULFATE 2.5 MG/3 ML VIAL NEB SCH (08:43)
[2017-08-20] MEDS: OXcarbazepine 300 MG TAB PO SCH (09:39)
[2017-08-20] MEDS: PROPRANOLOL HCL 20 MG TAB PO SCH (09:40)
[2017-08-20] MEDS: SODIUM CHLORIDE 0.9% (FLUSH) 10 ML SYG IV SCH (09:40)
[2017-08-20] MEDS: lamoTRIgine 25 MG TAB PO SCH (09:40)
[2017-08-20] MEDS: CITALOPRAM HBR 20 MG TAB PO SCH (09:41)
[2017-08-20] MEDS: ASPIRIN TABLET 325 MG TAB PO SCH (09:41)
[2017-08-20 11:57] VITALS: BP 106/66; TEMP 98; O2SAT 93
--- NOTE | 2017-08-20 14:01 | DS ---
SUPERVISING PHYSICIAN: German Hassan MD DISCHARGE DIAGNOSIS: 1. Chest pain, rule out myocardial infarction with negative troponins on serial cardiac cardiac enzymes. Ejection fraction is 68% on echocardiogram from 08/31. 2. Poor medical compliance, maybe related to his psychiatric issues prior to admission. Prior to admission, he had not taken any medication since January of 2017. 3. Hypertension. 4. Asthma. 5. Obstructive sleep apnea. 6. Bipolar disorder with anxiety. HISTORY OF PRESENT ILLNESS: This is a 47-year-old male patient who was watching TV at his home on the date of admission and had sudden onset of chest tightness that radiated to the right side of his neck. He also had a headache shortly after that. He took some aspirin. It was noted that he had diaphoresis with it. He rested several hours and the chest pain continued. He decided to drive himself to the Emergency Room and on the way, he was driving erratically and was stopped by a special police officer. The special police officer called an ambulance. He was given 2 baby aspirin at that time and was brought to our Emergency Room. It was found that he had been out of his medications for several months and he was quite fixated on his brother was supposed to be taking care of his insurance and his medications, but had not done so. His mother in February of 2017 and she had taken care of most of his medical issues. After further investigation, it was found he had not had any of his medications since January of 2017. He had received his psychiatric medications from [facility] and Dr. Hassan, his primary care physician, prescribed his asthma and antihypertensive medications. He was placed in the hospital in observation. HOSPITAL COURSE: His serial cardiac enzymes were all negative. He had no further complaints of chest pain. Malt Roaster was consulted and they initiated referral for services for his psychiatric issues and I restarted him on his psychiatric medications which were trazodone, Lamictal, Celexa and Trileptal. He had previously been on propranolol and amlodipine, but his blood pressures were fairly well controlled, so propranolol was restarted. He was also given breathing treatments. His condition stabilized. He tolerated the restart of his medications without any issues. His brother from [place] came to the hospital to see the patient and we had a long discussion with him that included Malt [employer]aster and in agreement with his brother we are getting his medications restarted and assisting him with his insurance coverage. His medications have been called into [facility] and he will be discharged home today. DISCHARGE PLAN: The patient will be discharged home in stable condition. He is to resume his previous diet and activity. He is to see me in clinic on 08/23/17, at 2 PM. He is to picked edge sewing machine operator a 3 month supply of his medications. I discussed it with the pharmacist at [facility] as well as the patient's brother. The patient understands he is to pick his medications up and take them as instructed. He is to return to Dr. Hassan's office or to return to the Emergency Room for any further problems or complications. DISCHARGE MEDICATIONS: 1. Celexa. 2. Trileptal. 3. Trazodone. 4. Lamictal. 5. Propranolol. 6. Albuterol. 7. Aspirin. 8. Multivitamins. 9. Flonase. Dr. Hassan is the collaborating physician and available for consultation. #[id number] [facility]
== END 2017-08-20 13:01 | disposition home or self-care (01) ==
LOC: ER 00:20 → MS 02:49
PROVIDERS: ADMIT Nurse Practitioner Family; ATTEND Nurse Practitioner Acute Care
DX: R07.89 Other chest pain (principal); I10 Essential (primary) hypertension; J45.909 Unspecified asthma, uncomplicated; G47.33 Obstructive sleep apnea (adult) (pediatric); F31.9 Bipolar disorder, unspecified; F41.9 Anxiety disorder, unspecified; F17.290 Nicotine dependence, other tobacco product, uncomplicated; Z91.14 Patient's other noncompliance with medication regimen; Z79.82 Long term (current) use of aspirin; Z79.899 Other long term (current) drug therapy; Z88.0 Allergy status to penicillin; Z88.8 Allergy status to other drugs, medicaments and biological substances; Z87.11 Personal history of peptic ulcer disease
CPT/HCPCS: 36415 ×6; 71045; 80048; 80061; 82550 ×3; 82553 ×3; 83880; 84484 ×3; 85025 ×2; 85379; 85610; 85730; 93005 ×2; 94640 ×8; 94760 ×9; J3480; J7611 ×7; Q0163

== ENCOUNTER 2019-03-03 11:38 | Emergency (ER) | payer SELFPAY ==
[2019-03-03] MEDS ORDERED: ALPRAZolam 0.25 MG TAB PO ONE (11:53)
[2019-03-03 12:27] VITALS: BP 160/98; TEMP 98.9; O2SAT 93
--- NOTE | 2019-03-03 12:48 | RAD ---
Procedure: XR CHEST 2 VIEWS Exam Date: 03/03/2019 Ordering Provider: Koby Hassan Clinical Indication: sob, anxiety Comparison: 08/18/2017 Findings: Cardiomegaly. No focal lung consolidation. Bronchovascular markings are accentuated by low lung volumes. No pleural effusion. No pneumothorax. No acute osseous abnormality. Impression: 1. No acute abnormality in the chest. Electronically signed by: Romeo Su MD 03/03/2019 12:47 PM CDT
--- NOTE | 2019-03-03 14:43 | ED.PDOC ---
History of Present Illness - General Chief Complaint: Respiratory Problem Stated Complaint: Possible anxiety causing SOB Time Seen by Provider: 03/03/19 11:53 Source: patient Exam Limitations: no limitations - History of Present Illness Initial Comments: the patient is a 49-year-old male presenting to emergency room secondary to a feeling of shortness of breath and anxiety last 2 weeks. He has an asthmatic. When he was at his most short of breath he would have a little bit of chest discomfort. Shortness of breath has been consistent. This started when he ran out of his psychiatric medications and was unable to get them refilled. No syncope. He has not been sleeping. He has apparently been out of his oxcarbazepine and trazodone. The patient is visibly anxious here and obviously depressed. He is crying for a good bit of the interview. He is oxygenating well. No obvious respiratory distress. Lungs are actually clear. He has been doing his breathing treatments forasthma. Timing/Duration: other - 2 weeks Severity: moderate Improving Factors: nothing Worsening Factors: nothing Associated Symptoms: chest pain, shortness of breath Allergies/Adverse Reactions: Allergies Penicillins Allergy (Verified 08/19/17 13:17) Home Medications: Ambulatory Orders Aspirin 325 mg PO DAILY 03/30/16 Multiple Vitamins W/ Minerals [Multivitamin Adults] 1 unit PO DAILY 03/30/16 Trazodone HCl 100 mg PO BEDTIME #7 tab 02/05/17 Albuterol Sulfate Nebs [Proventil Nebs] 1 puff INH QID 08/18/17 Fluticasone Propionate (Nasal) [Flonase] 50 mcg NA DAILY 08/18/17 Albuterol Sulfate Nebs [Proventil Nebs] 2.5 mg NEB Q4H PRN #120 vial 08/20/17 Citalopram Hydrobromide [Celexa] 40 mg PO DAILY #90 tab 08/20/17 Lamotrigine [Lamictal] 25 mg PO DAILY #90 tab 08/20/17 Oxcarbazepine [Trileptal] 150 mg PO BID #180 tab 08/20/17 Propranolol HCl [Inderal] 20 mg PO BID #180 tab 08/20/17 Trazodone HCl [Trazodone Hydrochloride] 100 mg PO BEDTIME #90 tab 08/20/17 Oxcarbazepine 150 mg PO BID #20 tab 03/03/19 Trazodone HCl 100 mg PO QPM #10 tab 03/03/19 Review of Systems - Review of Systems Constitutional: States: no symptoms reported EENTM: States: no symptoms reported Respiratory: States: short of breath Cardiology: States: chest pain Gastrointestinal/Abdominal: States: no symptoms reported Genitourinary: States: no symptoms reported Musculoskeletal: States: no symptoms reported Skin: States: no symptoms reported Neurological: States: anxiety, depressed Endocrine: States: no symptoms reported All other Systems: No Change from Baseline Past Medical History (General) - Patient Medical History Hx Seizures: No Hx Stroke: No Hx Dementia: No Hx Asthma: Yes Hx of COPD: No Hx Cardiac Disorders: No Hx Congestive Heart Failure: Yes Hx Pacemaker: No Hx Hypertension: Yes Hx Thyroid Disease: No Hx Diabetes: No Hx Gastroesophageal Reflux: No Hx Renal Disease: No Hx Cancer: No Hx of HIV: No Hx Hepatitis C: No Hx MRSA: No Surgical History: cholecystectomy - Vaccination History Hx Tetanus, Diphtheria Vaccination: No Hx Influenza Vaccination: No Hx Pneumococcal Vaccination: No Immunizations Up to Date: No - Social History Hx Tobacco Use: No Hx Chewing Tobacco Use: Yes Hx Alcohol Use: No Hx Substance Use: No Hx Substance Use Treatment: No Hx Depression: Yes - Bipolar Hx Physical Abuse: No Hx Emotional Abuse: No Hx Suspected Abuse: No - Female History Patient is a Female of Child Bearing Age (10 -59 yrs old): No Patient : No Family Medical History - Family History Mother Family History: No Known Living Status: Unknown Hx Family Congestive Heart Failure: Yes - mom Hx Family Diabetes: Yes Hx Family Cancer: Yes - dad-pancreas Physical Exam - Physical Exam General Appearance: Alert, Anxious - obviously depressed Eye Exam: bilateral normal Ears, Nose, Throat: hearing grossly normal, normal pharynx Neck: full range of motion, supple Respiratory: lungs clear, normal breath sounds, no respiratory distress, no accessory muscle use Cardiovascular/Chest: normal peripheral pulses, regular rate, rhythm, no edema Peripheral Pulses: radial,right: 2+, radial,left: 2+, dorsalis pedis,right: 2+, dorsalis pedis,left: 2+ Gastrointestinal/Abdominal: non tender - morbidly obese, soft Rectal Exam: deferred Back Exam: no CVA tenderness, no vertebral tenderness Extremity: non-tender, normal inspection, no pedal edema, normal capillary refill Neurologic: medical certification specialist II-XII nml as tested, alert, oriented x 3, other - obviously anxious and depressed Skin Exam: normal color Comments: Vital Signs - 24 hr 03/03/19 03/03/19 11:40 11:50 Temperature 98.9 F Pulse Rate [ 97 H 97 H Monitor] Respiratory 22 22 Rate Blood Pressure 160/98 [L brachial] O2 Sat by Pulse 93 L Oximetry Progress - Progress Progress: 03/03/19 14:46 the patient is a 49-year-old male presenting to emergency room secondary to a couple of weeks of shortness of breath along with worsening anxiety and depression as well as what appears to be a hypomanic episode. The patient has been off of his psychiatric medications for bipolar disorder for a couple of weeks which corresponds well to his symptom timeframe. He is going to be written for 10 days of his oxcarbazepine and trazodone. He needs to get finished getting set up with [facility]. He is feeling much better at this point. Blood work, EKG and chest x-ray are reassuring. ER warnings were given. airam de la torre [id number] - Results/Orders Results/Orders: Laboratory Tests 03/03/19 03/03/19 03/03/19 12:27 12:27 12:27 WBC 9.6 RBC 4.67 L Hgb 14.1 Hct 41.5 L MCV 88.9 MCH 30.1 MCHC 33.9 RDW 14.9 H Plt Count 297 MPV 8.0 Absolute Neuts (auto) 6.40 Absolute Lymphs (auto) 1.90 Absolute Monos (auto) 1.10 H Absolute Eos (auto) 0.20 Absolute Basos (auto) 0.10 Neutrophils % 66.6 Lymphocytes % 19.4 L Monocytes % 11.2 H Eosinophils % 1.8 Basophils % 1.0 Sodium 138 Potassium 4.0 Chloride 99 L Carbon Dioxide 24 Anion Gap 19.0 H BUN 17 Creatinine 0.86 BUN/Creatinine Ratio 19.8 Random Glucose 89 Serum Osmolality 276.7 Calcium 9.7 Magnesium 2.0 Total Bilirubin 0.5 AST 44 H ALT 46 Alkaline Phosphatase 99 Creatine Kinase 209 H* CK-MB (CK-2) 3.7 CK-MB (CK-2) % Not Reportable Troponin I < 0.02 B-Natriuretic Peptide < 5.0 Serum Total Protein 7.1 Albumin 3.8 Globulin 3.3 Albumin/Globulin Ratio 1.2 TSH 3.12 EKG shows normal sinus rhythm. Slow R-wave progression. old Q waves in inferior leads. No definitive ST segment or T-wave changes indicative of acute ischemia. Rate is 100 bpm. Normal QT intervals. possibly early right bundle. two-view chest x-ray shows no acute pathology. Departure - Departure Clinical Impression: Bipolar 1 disorder, depressed, Noncompliance with medication regimen Disposition: Discharge to Home or Self Care Condition: Fair Departure Forms: ED Discharge - Pt. Copy, Patient Portal Self Enrollment Instructions: Bipolar Disorder (DC) Diet: regular diet Activity: increase activity as tolerated Referrals: German De La Torre MD [Primary Care Provider] - 1-2 Weeks Prescriptions: Oxcarbazepine 150 mg PO BID #20 tab Trazodone HCl 100 mg PO QPM #10 tab Home Medications: Ambulatory Orders Aspirin 325 mg PO DAILY 03/30/16 Multiple Vitamins W/ Minerals [Multivitamin Adults] 1 unit PO DAILY 03/30/16 Trazodone HCl 100 mg PO BEDTIME #7 tab 02/05/17 Albuterol Sulfate Nebs [Proventil Nebs] 1 puff INH QID 08/18/17 Fluticasone Propionate (Nasal) [Flonase] 50 mcg NA DAILY 08/18/17 Albuterol Sulfate Nebs [Proventil Nebs] 2.5 mg NEB Q4H PRN #120 vial 08/20/17 Citalopram Hydrobromide [Celexa] 40 mg PO DAILY #90 tab 08/20/17 Lamotrigine [Lamictal] 25 mg PO DAILY #90 tab 08/20/17 Oxcarbazepine [Trileptal] 150 mg PO BID #180 tab 08/20/17 Propranolol HCl [Inderal] 20 mg PO BID #180 tab 08/20/17 Trazodone HCl [Trazodone Hydrochloride] 100 mg PO BEDTIME #90 tab 08/20/17 Oxcarbazepine 150 mg PO BID #20 tab 03/03/19 Trazodone HCl 100 mg PO QPM #10 tab 03/03/19 Additional Instructions: the patient is a 49-year-old male presenting to emergency room secondary to a couple of weeks of shortness of breath along with worsening anxiety and depression as well as what appears to be a hypomanic episode. The patient has been off of his psychiatric medications for bipolar disorder for a couple of weeks which corresponds well to his symptom timeframe. He is going to be written for 10 days of his oxcarbazepine and trazodone. He needs to get finished getting set up with [facility]. He is feeling much better at this point. Blood work, EKG and chest x-ray are reassuring. ER warnings were given.
== END 2019-03-03 15:10 | disposition home or self-care (01) ==
LOC: ER 11:38
DX: F31.9 Bipolar disorder, unspecified (principal); R06.02 Shortness of breath; R07.89 Other chest pain; J45.909 Unspecified asthma, uncomplicated; I50.9 Heart failure, unspecified; I11.0 Hypertensive heart disease with heart failure; Z91.14 Patient's other noncompliance with medication regimen; Z87.891 Personal history of nicotine dependence; Z79.899 Other long term (current) drug therapy; Z79.82 Long term (current) use of aspirin; Z88.0 Allergy status to penicillin

== ENCOUNTER 2019-05-08 11:25 | Emergency (ER) | payer SELFPAY ==
[2019-05-08] MEDS ORDERED: IPRATROPIUM/ALBUTEROL 3 ML VIAL NEB ONE (11:41)
--- NOTE | 2019-05-08 12:20 | RAD ---
EXAM DESCRIPTION: XR CHEST 2 VIEWS CLINICAL HISTORY: Shortness of breath COMPARISON: 03/03/2019 TECHNIQUE: PA/lateral FINDINGS: Heart size is normal. Low lung volumes, likely shallow inspiration. No edema, infiltrate or effusion No acute bony abnormality. IMPRESSION: Low lung volumes likely shallow inspiration. No focal infiltrate or edema Electronically signed by: German Arauz MD 05/08/2019 12:18 PM SOUND RECORDIST
--- NOTE | 2019-05-08 13:24 | ED.PDOC ---
History of Present Illness - General Chief Complaint: Respiratory Problem Stated Complaint: worsening SOB Time Seen by Provider: 05/08/19 11:37 Source: patient Exam Limitations: no limitations - History of Present Illness Initial Comments: the patient is a 49-year-old male presenting to emergency room secondary to a sensation of increased shortness of breath over the last 24-48 hours. He does have significant anxiety issues. He does have asthma. Additionally he is reporting having a small amount of bleeding in his underwear with or without bowel movement over the last month. It is painful to white. He has had hemorrhoids for the past. No real constipation. He is much more animated than he has been in the past. He is definitely anxious. He does have scattered wheezes. He is morbidly obese. He does have chronic +1 edema to bilateral lower extremities. Timing/Duration: 24 hours Severity: moderate Improving Factors: nothing Worsening Factors: nothing Associated Symptoms: shortness of breath Allergies/Adverse Reactions: Allergies Penicillins Allergy (Verified 08/19/17 13:17) Home Medications: Ambulatory Orders Aspirin 325 mg PO DAILY 03/30/16 Multiple Vitamins W/ Minerals [Multivitamin Adults] 1 unit PO DAILY 03/30/16 Trazodone HCl 100 mg PO BEDTIME #7 tab 02/05/17 Albuterol Sulfate Nebs [Proventil Nebs] 1 puff INH QID 08/18/17 Fluticasone Propionate (Nasal) [Flonase] 50 mcg NA DAILY 08/18/17 Albuterol Sulfate Nebs [Proventil Nebs] 2.5 mg NEB Q4H PRN #120 vial 08/20/17 Citalopram Hydrobromide [Celexa] 40 mg PO DAILY #90 tab 08/20/17 Lamotrigine [Lamictal] 25 mg PO DAILY #90 tab 08/20/17 Oxcarbazepine [Trileptal] 150 mg PO BID #180 tab 08/20/17 Propranolol HCl [Inderal] 20 mg PO BID #180 tab 08/20/17 Trazodone HCl [Trazodone Hydrochloride] 100 mg PO BEDTIME #90 tab 08/20/17 Oxcarbazepine 150 mg PO BID #20 tab 03/03/19 Trazodone HCl 100 mg PO QPM #10 tab 03/03/19 Review of Systems - Review of Systems Constitutional: States: no symptoms reported EENTM: States: nose congestion Respiratory: States: cough, short of breath, wheezing Cardiology: States: no symptoms reported Gastrointestinal/Abdominal: States: see HPI, other - morbidly obese Genitourinary: States: no symptoms reported Musculoskeletal: States: no symptoms reported Skin: States: no symptoms reported Neurological: States: anxiety Endocrine: States: no symptoms reported All other Systems: No Change from Baseline Past Medical History (General) - Patient Medical History Hx Seizures: No Hx Stroke: No Hx Dementia: No Hx Asthma: Yes Hx of COPD: No Hx Cardiac Disorders: No Hx Congestive Heart Failure: Yes Hx Pacemaker: No Hx Hypertension: Yes Hx Thyroid Disease: No Hx Diabetes: No Hx Gastroesophageal Reflux: No Hx Renal Disease: No Hx Cancer: No Hx of HIV: No Hx Hepatitis C: No Hx MRSA: No - Vaccination History Hx Tetanus, Diphtheria Vaccination: No Hx Influenza Vaccination: No Hx Pneumococcal Vaccination: No - Social History Hx Tobacco Use: No Hx Chewing Tobacco Use: Yes Hx Alcohol Use: No Hx Substance Use: No Hx Substance Use Treatment: No Hx Depression: Yes - Bipolar Hx Physical Abuse: No Hx Emotional Abuse: No Hx Suspected Abuse: No - Female History Patient is a Female of Child Bearing Age (10 -59 yrs old): No Patient : No - Triage Comment ED Triage Comment: pt voices worsening SOB this morning upon waking. Family Medical History - Family History Mother Family History: No Known Living Status: Unknown Hx Family Congestive Heart Failure: Yes - mom Hx Family Diabetes: Yes Hx Family Cancer: Yes - dad-pancreas Physical Exam - Physical Exam General Appearance: Alert, Comfortable, No apparent distress Eye Exam: bilateral normal Ears, Nose, Throat: hearing grossly normal, nasal congestion Neck: full range of motion, supple Respiratory: no respiratory distress, no accessory muscle use, wheezing Cardiovascular/Chest: normal peripheral pulses, regular rate, rhythm, no edema Peripheral Pulses: radial,right: 2+, radial,left: 2+ Gastrointestinal/Abdominal: non tender, soft Rectal Exam: other - the patient does appear to have what seems to be an abraded hemorrhoid site is tender to palpation. Back Exam: no CVA tenderness, no vertebral tenderness Extremity: normal range of motion, non-tender, no calf tenderness, normal capillary refill, pedal edema - chronic +1 Neurologic: game moderator II-XII nml as tested, alert, normal mood/affect, oriented x 3 Skin Exam: normal color Comments: Vital Signs - 24 hr 05/08/19 11:30 Temperature 98.9 F Pulse Rate [ 99 H brachial] Respiratory 22 Rate Blood Pressure 157/96 [Left Arm] O2 Sat by Pulse 95 Oximetry Progress - Progress Progress: 05/08/19 13:25 the patient is a 49-year-old male came to the emergency room secondary to shortness of breath and rectal bleeding. He appears to be having a mild asthma exacerbation. This is likely being triggered by mild viral upper respiratory tract infection based upon exam. He'll be placed on prednisone 20 mg daily for 3 days only. He needs to continue his breathing treatments at least 3 times daily. Additionally he has what appears to be an incompletely healed hemorrhoid site. He can use topical Preparation H 2-3 times a day and he will also be written for anusol suppositories for this for the next 3 or 4 days. He needs to keep from getting constipated. Keep well hydrated. He needs to follow-up with the primary care doctor towards the end of the week for reevaluation. ER warnings were given. Keep follow-up with [facility]. airam de [place] tor[place] [id number] - Results/Orders Results/Orders: chest x-ray shows no acute pathology. Departure - Departure Clinical Impression: Asthma exacerbation Qualifiers: Asthma severity: moderate Asthma persistence: persistent Qualified Code(s): J45.41 - Moderate persistent asthma with (acute) exacerbation Hemorrhoids Qualifiers: Hemorrhoid type: unspecified Qualified Code(s): K64.9 - Unspecified hemorrhoids Disposition: Discharge to Home or Self Care Condition: Fair Departure Forms: ED Discharge - Pt. Copy, Patient Portal Self Enrollment Instructions: DI for Asthma -- Adult, Hemorrhoids (DC) Diet: regular diet Activity: increase activity as tolerated Referrals: German De La Torre MD [Primary Care Provider] - 1-2 Weeks Home Medications: Ambulatory Orders Aspirin 325 mg PO DAILY 03/30/16 Multiple Vitamins W/ Minerals [Multivitamin Adults] 1 unit PO DAILY 03/30/16 Trazodone HCl 100 mg PO BEDTIME #7 tab 02/05/17 Albuterol Sulfate Nebs [Proventil Nebs] 1 puff INH QID 08/18/17 Fluticasone Propionate (Nasal) [Flonase] 50 mcg NA DAILY 08/18/17 Albuterol Sulfate Nebs [Proventil Nebs] 2.5 mg NEB Q4H PRN #120 vial 08/20/17 Citalopram Hydrobromide [Celexa] 40 mg PO DAILY #90 tab 08/20/17 Lamotrigine [Lamictal] 25 mg PO DAILY #90 tab 08/20/17 Oxcarbazepine [Trileptal] 150 mg PO BID #180 tab 08/20/17 Propranolol HCl [Inderal] 20 mg PO BID #180 tab 08/20/17 Trazodone HCl [Trazodone Hydrochloride] 100 mg PO BEDTIME #90 tab 08/20/17 Oxcarbazepine 150 mg PO BID #20 tab 03/03/19 Trazodone HCl 100 mg PO QPM #10 tab 03/03/19 Additional Instructions: the patient is a 49-year-old male came to the emergency room secondary to shortness of breath and rectal bleeding. He appears to be having a mild asthma exacerbation. This is likely being triggered by mild viral upper respiratory tract infection based upon exam. He'll be placed on prednisone 20 mg daily for 3 days only. He needs to continue his breathing treatments at least 3 times daily. Additionally he has what appears to be an incompletely healed hemorrhoid site. He can use topical Preparation H 2-3 times a day and he will also be written for anusol suppositories for this for the next 3 or 4 days. He needs to keep from getting constipated. Keep well hydrated. He needs to follow-up with the primary care doctor towards the end of the week for reevaluation. ER warnings were given. Keep follow-up with [facility].
[2019-05-08 13:54] VITALS: BP 143/87; TEMP 98.7; O2SAT 94
== END 2019-05-08 13:15 | disposition home or self-care (01) ==
LOC: ER 11:25
DX: J45.41 Moderate persistent asthma with (acute) exacerbation (principal); K64.9 Unspecified hemorrhoids; R60.0 Localized edema; F32.9 Major depressive disorder, single episode, unspecified; I50.9 Heart failure, unspecified; I11.0 Hypertensive heart disease with heart failure; E66.01 Morbid (severe) obesity due to excess calories; Z79.899 Other long term (current) drug therapy; Z79.82 Long term (current) use of aspirin; Z88.0 Allergy status to penicillin; Z87.891 Personal history of nicotine dependence; Z68.43 Body mass index [BMI] 50.0-59.9, adult
CPT/HCPCS: 71046; 94640; J7620

== ENCOUNTER 2019-05-23 10:58 | Emergency (ER) | payer SELFPAY ==
[2019-05-23] MEDS: IPRATROPIUM/ALBUTEROL 3 ML VIAL NEB ONE (11:33)
--- NOTE | 2019-05-23 11:51 | RAD ---
EXAM DESCRIPTION: Chest,1 View CLINICAL HISTORY: dyspnea FINDINGS/ IMPRESSION: Comparison 05/08/2019 Low lung volumes likely shallow inspiration with basilar atelectasis. Heart size is within normal limits. Normal mediastinal contour No pulmonary edema, alveolar consolidation or effusion Electronically signed by: German Arauz MD 05/23/2019 11:49 AM TEST DEVELOPMENT ENGINEER
--- NOTE | 2019-05-23 11:56 | ED.PDOC ---
History of Present Illness - General Chief Complaint: Respiratory Problem Time Seen by Provider: 05/23/19 11:47 Source: patient Exam Limitations: no limitations - History of Present Illness Severity: moderate Activities at Onset: none Possible Cause: unknown cause Improving Factors: nothing Worsening Factors: movement Associated Symptoms: anxiety Respiratory Risk Factors: no cause identified Allergies/Adverse Reactions: Allergies Penicillins Allergy (Verified 08/19/17 13:17) Home Medications: Ambulatory Orders Aspirin 325 mg PO DAILY 03/30/16 Multiple Vitamins W/ Minerals [Multivitamin Adults] 1 unit PO DAILY 03/30/16 Trazodone HCl 100 mg PO BEDTIME #7 tab 02/05/17 Albuterol Sulfate Nebs [Proventil Nebs] 1 puff INH QID 08/18/17 Fluticasone Propionate (Nasal) [Flonase] 50 mcg NA DAILY 08/18/17 Albuterol Sulfate Nebs [Proventil Nebs] 2.5 mg NEB Q4H PRN #120 vial 08/20/17 Citalopram Hydrobromide [Celexa] 40 mg PO DAILY #90 tab 08/20/17 Lamotrigine [Lamictal] 25 mg PO DAILY #90 tab 08/20/17 Oxcarbazepine [Trileptal] 150 mg PO BID #180 tab 08/20/17 Propranolol HCl [Inderal] 20 mg PO BID #180 tab 08/20/17 Trazodone HCl [Trazodone Hydrochloride] 100 mg PO BEDTIME #90 tab 08/20/17 Oxcarbazepine 150 mg PO BID #20 tab 03/03/19 Trazodone HCl 100 mg PO QPM #10 tab 03/03/19 Methylprednisolone [Medrol Dose [place]] 4 mg PO DAILY #1 tab 05/23/19 Review of Systems - Review of Systems Constitutional: Denies: chills, fever EENTM: States: nose congestion. Denies: ear pain Respiratory: States: short of breath, wheezing. Denies: cough Cardiology: Denies: chest pain Gastrointestinal/Abdominal: Denies: abdominal pain, constipation Genitourinary: Denies: dysuria, frequency Musculoskeletal: Denies: back pain, neck pain Skin: Denies: lesions, rash Neurological: States: anxiety. Denies: headache, paresthesia Endocrine: Denies: increased thirst, increased urine Hematologic/Lymphatic: Denies: easy bleeding, easy bruising All other Systems: Reviewed and Negative Past Medical History (General) - Patient Medical History Hx Seizures: No Hx Stroke: No Hx Dementia: No Hx Asthma: Yes Hx of COPD: No Hx Cardiac Disorders: No Hx Congestive Heart Failure: Yes Hx Pacemaker: No Hx Hypertension: Yes Hx Thyroid Disease: No Hx Diabetes: No Hx Gastroesophageal Reflux: No Hx Renal Disease: No Hx Cancer: No Hx of HIV: No Hx Hepatitis C: No Hx MRSA: No - Vaccination History Hx Tetanus, Diphtheria Vaccination: No Hx Influenza Vaccination: No Hx Pneumococcal Vaccination: No - Social History Hx Tobacco Use: No Hx Chewing Tobacco Use: Yes Hx Alcohol Use: No Hx Substance Use: No Hx Substance Use Treatment: No Hx Depression: Yes - Bipolar Hx Physical Abuse: No Hx Emotional Abuse: No Hx Suspected Abuse: No - Female History Patient : No Family Medical History - Family History Mother Family History: No Known Living Status: Unknown Hx Family Congestive Heart Failure: Yes - mom Hx Family Diabetes: Yes Hx Family Cancer: Yes - dad-pancreas Physical Exam - Physical Exam General Appearance: Alert, Obese Eyes, Ears, Nose, Throat Exam: PERRL/EOMI, normal ENT inspection, TMs normal Neck: non-tender, full range of motion, supple, normal inspection Respiratory: chest non-tender, no accessory muscle use, wheezing - BL EXPIRATORY Cardiovascular/Chest: normal peripheral pulses, regular rate, rhythm, no JVD Peripheral Pulses: radial,right: 1+, radial,left: 1+ Gastrointestinal/Abdominal: normal bowel sounds, non tender, soft, no organomegaly Extremity: non-tender, no calf tenderness, pedal edema - BL, CHRONIC PER PT. Neurologic: alert, normal mood/affect, oriented x 3 Skin Exam: normal color, warm/dry Lymphatic: no adenopathy Progress - Results/Orders Results/Orders: ASTHMA EXACERBATION - GAVE DUONEBS, SOLUMEDROL. NEG W/U FOR OTHER ETX: NEG CARDIAC ENZ, BNP, CXR, EKG, CBC, D-DIMER (SLIGHTLY ELEVATED BUT NOT AT A LEVEL CONCERNING FOR P.E.), CMP UNREMARKABLE. PT HAS ADDITIONAL CHRONIC SEVERE MORBID OBESITY, PANIC ATTACKS, BIPOLAR. SAFE FOR DC TO HOME ON HOME INHALER AND RX'D MEDROL DOSE PACK. - EKG/XRAY/CT EKG: Sinus, Tachy, no ST T wave changes Departure - Departure Clinical Impression: Morbid (severe) obesity due to excess calories Asthma exacerbation Qualifiers: Asthma severity: moderate Asthma persistence: unspecified Qualified Code(s): J45.901 - Unspecified asthma with (acute) exacerbation Dyspnea Qualifiers: Dyspnea type: dyspnea on exertion Qualified Code(s): R06.09 - Other forms of dyspnea Obesity Qualifiers: Obesity type: due to excess calories Obesity classification: adult class 3 (BMI >= 40) Serious obesity comorbidity presence: unspecified whether serious comorbidity present Body mass index: BMI 50.0-59.9 Qualified Code(s): E66.01 - Morbid (severe) obesity due to excess calories; Z68.43 - Body mass index (BMI) 50.0-59.9, adult Disposition: Discharge to Home or Self Care Condition: Good Departure Forms: ED Discharge - Pt. Copy, Patient Portal Self Enrollment Instructions: DI for Asthma -- Adult Activity: increase activity as tolerated Referrals: German Hassan MD [Primary Care Provider] - 1-2 Weeks Prescriptions: Methylprednisolone [Medrol Dose [place]] 4 mg PO DAILY #1 tab Home Medications: Ambulatory Orders Aspirin 325 mg PO DAILY 03/30/16 Multiple Vitamins W/ Minerals [Multivitamin Adults] 1 unit PO DAILY 03/30/16 Trazodone HCl 100 mg PO BEDTIME #7 tab 02/05/17 Albuterol Sulfate Nebs [Proventil Nebs] 1 puff INH QID 08/18/17 Fluticasone Propionate (Nasal) [Flonase] 50 mcg NA DAILY 08/18/17 Albuterol Sulfate Nebs [Proventil Nebs] 2.5 mg NEB Q4H PRN #120 vial 08/20/17 Citalopram Hydrobromide [Celexa] 40 mg PO DAILY #90 tab 08/20/17 Lamotrigine [Lamictal] 25 mg PO DAILY #90 tab 08/20/17 Oxcarbazepine [Trileptal] 150 mg PO BID #180 tab 08/20/17 Propranolol HCl [Inderal] 20 mg PO BID #180 tab 08/20/17 Trazodone HCl [Trazodone Hydrochloride] 100 mg PO BEDTIME #90 tab 08/20/17 Oxcarbazepine 150 mg PO BID #20 tab 03/03/19 Trazodone HCl 100 mg PO QPM #10 tab 10/18/19 Methylprednisolone [Medrol Dose [place]on] 4 mg PO DAILY #1 tab 05/23/19
[2019-05-23] MEDS ORDERED: ACETAMINOPHEN 500 MG TAB PO ONE (12:16)
[2019-05-23] MEDS ORDERED: methylPREDNISolone SODIUM SUC 125 MG/2 ML VIAL IV ONE (14:20)
[2019-05-24 09:31] VITALS: TEMP 97.1
[2019-05-24 09:32] VITALS: BP 122/82; O2SAT 95
== END 2019-05-23 14:30 | disposition home or self-care (01) ==
LOC: ER 10:58
DX: J45.901 Unspecified asthma with (acute) exacerbation (principal); E66.01 Morbid (severe) obesity due to excess calories; R00.0 Tachycardia, unspecified; F41.0 Panic disorder [episodic paroxysmal anxiety]; F31.9 Bipolar disorder, unspecified; I50.9 Heart failure, unspecified; I11.0 Hypertensive heart disease with heart failure; Z68.43 Body mass index [BMI] 50.0-59.9, adult; Z87.891 Personal history of nicotine dependence; Z79.82 Long term (current) use of aspirin; Z79.899 Other long term (current) drug therapy; Z88.0 Allergy status to penicillin
CPT/HCPCS: 36415; 71045; 80053; 82550; 82553; 83880; 84484; 85025; 85379; 93005; 94640; J7620

== ENCOUNTER 2019-10-21 17:47 | Emergency (ER) | payer SELFPAY ==
[2019-10-21] MEDS ORDERED: AZITHROMYCIN 250 MG TAB PO ONE (18:49)
[2019-10-21] MEDS ORDERED: NEO/POLY/HC OTIC SUSP 10 ML BTTL RIGHT_EAR ONE (18:49)
--- NOTE | 2019-10-21 18:52 | ED.PDOC ---
History of Present Illness - General Chief Complaint: ENT Problem Stated Complaint: right ear pain x3 days Time Seen by Provider: 10/21/19 17:57 Source: patient Exam Limitations: no limitations - History of Present Illness Initial Comments: Pain and drainage from his right ear. He reports it has been draining for the last 2 days. Decreased hearing. Examination shows acute otitis externa with drainage. There is too much swelling and discomfort to visualize the tympanic membrane. Mild decreased hearing. No other symptoms. Timing/Duration: other - 3 or 4 days Severity: moderate Improving Factors: nothing Worsening Factors: nothing Associated Symptoms: denies symptoms Allergies/Adverse Reactions: Allergies Penicillins Allergy (Verified 08/19/17 13:17) Home Medications: Ambulatory Orders Aspirin 325 mg PO DAILY 03/30/16 Multiple Vitamins W/ Minerals [Multivitamin Adults] 1 unit PO DAILY 03/30/16 Trazodone HCl 100 mg PO BEDTIME #7 tab 02/05/17 Albuterol Sulfate Nebs [Proventil Nebs] 1 puff INH QID 08/18/17 Fluticasone Propionate (Nasal) [Flonase] 50 mcg NA DAILY 08/18/17 Albuterol Sulfate Nebs [Proventil Nebs] 2.5 mg NEB Q4H PRN #120 vial 08/20/17 Citalopram Hydrobromide [Celexa] 40 mg PO DAILY #90 tab 08/20/17 Lamotrigine [Lamictal] 25 mg PO DAILY #90 tab 08/20/17 Oxcarbazepine [Trileptal] 150 mg PO BID #180 tab 08/20/17 Propranolol HCl [Inderal] 20 mg PO BID #180 tab 08/20/17 Trazodone HCl [Trazodone Hydrochloride] 100 mg PO BEDTIME #90 tab 08/20/17 Oxcarbazepine 150 mg PO BID #20 tab 03/03/19 Trazodone HCl 100 mg PO QPM #10 tab 03/03/19 Methylprednisolone [Medrol Dose [place]] 4 mg PO DAILY #1 tab 05/23/19 Azithromycin 500 mg PO DAILY #7 tab 10/21/19 George/Poly/Hc Otic Susp [Cortisporin Otic Susp] 4 drop RIGHT_EAR Q6H #7 days 10/21/19 Review of Systems - Review of Systems Constitutional: States: no symptoms reported EENTM: States: ear pain, ear discharge Respiratory: States: no symptoms reported Cardiology: States: no symptoms reported Gastrointestinal/Abdominal: States: no symptoms reported Genitourinary: States: no symptoms reported Musculoskeletal: States: no symptoms reported Skin: States: no symptoms reported Neurological: States: no symptoms reported Endocrine: States: no symptoms reported All other Systems: No Change from Baseline Past Medical History (General) - Patient Medical History Hx Seizures: No Hx Stroke: No Hx Dementia: No Hx Asthma: Yes Hx of COPD: No Hx Cardiac Disorders: No Hx Congestive Heart Failure: Yes Hx Pacemaker: No Hx Hypertension: Yes Hx Thyroid Disease: No Hx Diabetes: No Hx Gastroesophageal Reflux: No Hx Renal Disease: No Hx Cancer: No Hx of HIV: No Hx Hepatitis C: No Hx MRSA: No - Vaccination History Hx Tetanus, Diphtheria Vaccination: No Hx Influenza Vaccination: No Hx Pneumococcal Vaccination: No - Social History Hx Tobacco Use: No Hx Chewing Tobacco Use: Yes Hx Alcohol Use: No Hx Substance Use: No Hx Substance Use Treatment: No Hx Depression: Yes - Bipolar Hx Physical Abuse: No Hx Emotional Abuse: No Hx Suspected Abuse: No - Female History Patient : No Family Medical History - Family History Mother Family History: No Known Living Status: Unknown Hx Family Congestive Heart Failure: Yes - mom Hx Family Diabetes: Yes Hx Family Cancer: Yes - dad-pancreas Physical Exam - Physical Exam General Appearance: Alert, Anxious Eye Exam: bilateral normal Ears, Nose, Throat: normal pharynx, other - See history of present illness Neck: full range of motion, supple Respiratory: no respiratory distress, no accessory muscle use Cardiovascular/Chest: normal peripheral pulses Peripheral Pulses: radial,right: 2+, radial,left: 2+ Gastrointestinal/Abdominal: soft - Morbidly obese Rectal Exam: deferred Extremity: normal range of motion, normal capillary refill Neurologic: associate II-XII nml as tested, alert, oriented x 3 Skin Exam: normal color Progress - Progress Progress: 10/21/19 18:51 The patient is a 49-year-old male with what appears to be an acute otitis externa of the right. Cannot rule out acute otitis interna with rupture. The patient was placed on azithromycin 500 mg daily for 7 days along with Cortisporin otic drops 3 times daily for 7 days. ER warnings are given. He needs to follow back up with his primary care doctor in 1 week. [email or web address] [id number] Departure - Departure Clinical Impression: Otitis externa Qualifiers: Otitis externa type: swimmer's ear Chronicity: acute Laterality: right Qualified Code(s): H60.331 - Swimmer's ear, right ear Disposition: Discharge to Home or Self Care Condition: Fair Departure Forms: ED Discharge - Pt. Copy, Patient Portal Self Enrollment Instructions: DI for Otitis Externa Diet: diabetic diet Activity: increase activity as tolerated Referrals: German Hassan MD [Primary Care Provider] - 1-2 Weeks Prescriptions: Azithromycin 500 mg PO DAILY #7 tab George/Poly/Hc Otic Susp [Cortisporin Otic Susp] 4 drop RIGHT_EAR Q6H #7 days Home Medications: Ambulatory Orders Aspirin 325 mg PO DAILY 03/30/16 Multiple Vitamins W/ Minerals [Multivitamin Adults] 1 unit PO DAILY 03/30/16 Trazodone HCl 100 mg PO BEDTIME #7 tab 02/05/17 Albuterol Sulfate Nebs [Proventil Nebs] 1 puff INH QID 08/18/17 Fluticasone Propionate (Nasal) [Flonase] 50 mcg NA DAILY 08/18/17 Albuterol Sulfate Nebs [Proventil Nebs] 2.5 mg NEB Q4H PRN #120 vial 08/20/17 Citalopram Hydrobromide [Celexa] 40 mg PO DAILY #90 tab 08/20/17 Lamotrigine [Lamictal] 25 mg PO DAILY #90 tab 08/20/17 Oxcarbazepine [Trileptal] 150 mg PO BID #180 tab 08/20/17 Propranolol HCl [Inderal] 20 mg PO BID #180 tab 08/20/17 Trazodone HCl [Trazodone Hydrochloride] 100 mg PO BEDTIME #90 tab 08/20/17 Oxcarbazepine 150 mg PO BID #20 tab 03/03/19 Trazodone HCl 100 mg PO QPM #10 tab 03/03/19 Methylprednisolone [Medrol Dose [place]] 4 mg PO DAILY #1 tab 05/23/19 Azithromycin 500 mg PO DAILY #7 tab 10/21/19 George/Poly/Hc Otic Susp [Cortisporin Otic Susp] 4 drop RIGHT_EAR Q6H #7 days 10/21/19 Additional Instructions: The patient is a 49-year-old male with what appears to be an acute otitis externa of the right. Cannot rule out acute otitis interna with rupture. The patient was placed on azithromycin 500 mg daily for 7 days along with Cortisporin otic drops 3 times daily for 7 days. ER warnings are given. He needs to follow back up with his primary care doctor in 1 week.
[2019-10-21 18:55] VITALS: TEMP 100.7; O2SAT 97
[2019-10-21 19:12] VITALS: BP 146/88
== END 2019-10-21 19:11 | disposition home or self-care (01) ==
LOC: ER 17:47
DX: H60.331 Swimmer's ear, right ear (principal); I11.0 Hypertensive heart disease with heart failure; I50.9 Heart failure, unspecified; Z79.899 Other long term (current) drug therapy; Z79.82 Long term (current) use of aspirin

== ENCOUNTER 2020-03-10 15:07 | Emergency (ER) | payer SELFPAY ==
[2020-03-10] MEDS ORDERED: ALUM & MAG HYDROX-SIMETHICONE 30 ML, LIDOCAINE VISCOUS 2% 15 ML PO ONE ×2 (15:22)
[2020-03-10 15:44] VITALS: TEMP 98.6
--- NOTE | 2020-03-10 16:09 | RAD ---
EXAM: XR Abdomen, 2 Views and XR Chest, 1 View CLINICAL HISTORY: The patient is 50 years old and is Male; epigastric/lower chest pain TECHNIQUE: Three views total including of the chest, frontal view of the abdomen/pelvis and upright or decubitus view of the abdomen. COMPARISON: No relevant prior studies available. FINDINGS: Lungs: No pulmonary vascular congestion or consolidation. Pleural space: Lateral left pleural thickening. No significant pleural fluid. No pneumothorax. Heart: Unremarkable. No cardiomegaly. Mediastinum: Unremarkable. Intraperitoneal space: No free air. Gastrointestinal tract: No dilated bowel loops. Organs: Cholecystectomy surgical clips. Bones/joints: Vertebral osteophytes. No acute fracture. IMPRESSION: No acute findings in the chest, abdomen or pelvis. Electronically signed by: Ladonna Mar MD 03/10/2020 4:08 PM CDT
[2020-03-10] MEDS ORDERED: ONDANSETRON INJ 4 MG/2 ML VIAL ONE (16:21)
[2020-03-10] MEDS ORDERED: ONDANSETRON INJ 4 MG/2 ML VIAL IV ONE (16:25)
[2020-03-10] MEDS ORDERED: SUCRALFATE 1 GM/10 ML 1 GM UD PO ONE (17:06)
[2020-03-10] MEDS ORDERED: PANTOPRAZOLE SODIUM IV 40 MG VIAL IV ONE (17:06)
[2020-03-10] MEDS ORDERED: PROMETHAZINE HCL 25 MG TAB PO ONE (17:27)
--- NOTE | 2020-03-10 17:44 | ED.PDOC ---
History of Present Illness - General Chief Complaint: Abdominal Pain Stated Complaint: abdominal pain Time Seen by Provider: 03/10/20 15:21 Source: patient Exam Limitations: no limitations - History of Present Illness Initial Comments: The patient is a 50-year-old male presents emergency room secondary to intermittent episodes of epigastric and lower substernal chest pain along with some nausea. He had one episode of vomiting here. No syncope. He is in the middle of having a panic attack upon arrival. He does have this problem frequently. Apparently his medications were changed within the last couple of months and his anxiety has been worse. He is not on any of his stomach medications that he is supposed to be taking. He does have a history of chronic recurrent gastritis along with either mild gastroparesis or cyclical nausea and vomiting. He has been seen multiple times for this problem. Additionally he had a headache today. He was mainly in a panic attack over the thought of having coronavirus. Timing/Duration: unsure Severity: moderate Improving Factors: nothing Associated Symptoms: headaches, other Allergies/Adverse Reactions: Allergies Penicillins Allergy (Verified 03/10/20 15:46) Home Medications: Ambulatory Orders Aspirin 325 mg PO DAILY 03/30/16 Multiple Vitamins W/ Minerals [Multivitamin Adults] 1 unit PO DAILY 03/30/16 Trazodone HCl 100 mg PO BEDTIME #7 tab 02/05/17 Albuterol Sulfate Nebs [Proventil Nebs] 1 puff INH QID 08/18/17 Fluticasone Propionate (Nasal) [Flonase] 50 mcg NA DAILY 08/18/17 Albuterol Sulfate Nebs [Proventil Nebs] 2.5 mg NEB Q4H PRN #120 vial 08/20/17 Citalopram Hydrobromide [Celexa] 40 mg PO DAILY #90 tab 08/20/17 Lamotrigine [Lamictal] 25 mg PO DAILY #90 tab 08/20/17 Oxcarbazepine [Trileptal] 150 mg PO BID #180 tab 08/20/17 Propranolol HCl [Inderal] 20 mg PO BID #180 tab 08/20/17 Trazodone HCl [Trazodone Hydrochloride] 100 mg PO BEDTIME #90 tab 08/20/17 Oxcarbazepine 150 mg PO BID #20 tab 03/03/19 Trazodone HCl 100 mg PO QPM #10 tab 03/03/19 Methylprednisolone [Medrol Dose [place]] 4 mg PO DAILY #1 tab 05/23/19 Azithromycin 500 mg PO DAILY #7 tab 10/21/19 George/Poly/Hc Otic Susp [Cortisporin Otic Susp] 4 drop RIGHT_EAR Q6H #7 days 10/21/19 Promethazine HCl 25 mg PO Q6H PRN #10 tab 03/10/20 predniSONE [Prednisone] 20 mg PO BID #60 tab 03/10/20 Review of Systems - Review of Systems Constitutional: States: no symptoms reported EENTM: States: no symptoms reported Respiratory: States: no symptoms reported Cardiology: States: chest pain Gastrointestinal/Abdominal: States: abdominal pain, nausea Genitourinary: States: no symptoms reported Musculoskeletal: States: no symptoms reported Skin: States: no symptoms reported Neurological: States: anxiety Endocrine: States: no symptoms reported All other Systems: No Change from Baseline Past Medical History (General) - Patient Medical History Hx Seizures: No Hx Stroke: No Hx Dementia: No Hx Asthma: Yes Hx of COPD: No Hx Cardiac Disorders: No Hx Congestive Heart Failure: Yes Hx Pacemaker: No Hx Hypertension: Yes Hx Thyroid Disease: No Hx Diabetes: No Hx Gastroesophageal Reflux: No Hx Renal Disease: No Hx Cancer: No Hx of HIV: No Hx Hepatitis C: No Hx MRSA: No - Vaccination History Hx Tetanus, Diphtheria Vaccination: No Hx Influenza Vaccination: No Hx Pneumococcal Vaccination: No - Social History Hx Tobacco Use: No Hx Chewing Tobacco Use: Yes Hx Alcohol Use: No Hx Substance Use: No Hx Substance Use Treatment: No Hx Depression: Yes - Bipolar Hx Physical Abuse: No Hx Emotional Abuse: No Hx Suspected Abuse: No - Activities of Daily Living Hospice Agency (if applicable):: None - Female History Patient is a Female of Child Bearing Age (10 -59 yrs old): No Patient : No Family Medical History - Family History Mother Family History: No Known Living Status: Unknown Hx Family Congestive Heart Failure: Yes - mom Hx Family Diabetes: Yes Hx Family Cancer: Yes - dad-pancreas Physical Exam - Physical Exam General Appearance: Alert, Anxious, Other - Initially inconsolable Eye Exam: bilateral normal Ears, Nose, Throat: hearing grossly normal, normal pharynx Neck: non-tender, supple Respiratory: lungs clear, normal breath sounds, no respiratory distress, no accessory muscle use Cardiovascular/Chest: normal peripheral pulses, regular rate, rhythm, no edema Peripheral Pulses: radial,right: 2+, radial,left: 2+ Gastrointestinal/Abdominal: non tender - Morbidly obese, no rebound or peritoneal signs. 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 He has been off of medications for this. He is going to be written for Pepcid to take twice daily. He does need to maintain small meals with bland food. He does need to increase his fluid intake. He will additionally be written for Phenergan for as needed use for any nausea as he is out of nausea medications. Laboratory work and EKG along with x-ray are reassuring. I do want him to keep follow-up with his primary care doctor next week and keep follow-up with psychiatry for further adjustment of his psychiatric medications. Anxiety does play a component in his somatic symptoms. ER warnings are given. He tested negative for coronavirus here today. [facility] [id number] - Results/Orders Results/Orders: Coronavirus test is negative. Acute abdominal series appears benign. EKG shows normal sinus rhythm at 94 bpm. Normal axis. Old Q waves in inferior leads. Normal R wave progression. No definitive ST segment or T wave changes indicative of acute ischemia. There is an old early right bundle branch block. Normal QT interval. Laboratory Tests 03/10/20 03/10/20 03/10/20 15:38 15:38 15:38 WBC 9.5 RBC 5.13 Hgb 15.6 Hct 45.1 MCV 87.9 MCH 30.4 MCHC 34.6 RDW 14.4 Plt Count 268 MPV 8.7 Absolute Neuts (auto) 6.70 Absolute Lymphs (auto) 1.90 Absolute Monos (auto) 0.80 Absolute Eos (auto) 0.10 Absolute Basos (auto) 0.10 Neutrophils % 70.1 Lymphocytes % 19.6 L Monocytes % 8.5 Eosinophils % 1.2 Basophils % 0.6 PT 10.6 INR 1.07 PTT (SP) 24.8 D-Dimer, Quantitative < 131.0 L Sodium 140 Potassium 3.5 L Chloride 102 Carbon Dioxide 27 Anion Gap 14.5 BUN 12 Creatinine 0.89 BUN/Creatinine Ratio 13.5 Random Glucose 113 H Serum Osmolality 280.0 Calcium 8.9 Magnesium Total Bilirubin 0.7 AST 38 ALT 55 Alkaline Phosphatase 110 Creatine Kinase 108 CK-MB (CK-2) 2.6 CK-MB (CK-2) % Not Reportable Troponin I < 0.02 B-Natriuretic Peptide < 15.0 Serum Total Protein 7.4 Albumin 4.2 Globulin 3.2 Albumin/Globulin Ratio 1.3 Amylase 46 Lipase 30 TSH Urine Color Urine Appearance Urine pH Ur Specific [place] Urine Protein Urine Glucose (UA) Urine Ketones Urine Blood Urine Nitrite Urine Bilirubin Urine Urobilinogen Ur Leukocyte Esterase Urine RBC Urine WBC Ur Epithelial Cells Urine Bacteria 03/10/20 03/10/20 15:38 16:47 WBC RBC Hgb Hct MCV MCH MCHC RDW Plt Count MPV Absolute Neuts (auto) Absolute Lymphs (auto) Absolute Monos (auto) Absolute Eos (auto) Absolute Basos (auto) Neutrophils % Lymphocytes % Monocytes % Eosinophils % Basophils % PT INR PTT (SP) D-Dimer, Quantitative Sodium Potassium Chloride Carbon Dioxide Anion Gap BUN Creatinine BUN/Creatinine Ratio Random Glucose Serum Osmolality Calcium Magnesium 2.0 Total Bilirubin AST ALT Alkaline Phosphatase Creatine Kinase CK-MB (CK-2) CK-MB (CK-2) % Troponin I B-Natriuretic Peptide Serum Total Protein Albumin Globulin Albumin/Globulin Ratio Amylase Lipase TSH 1.70 Urine Color Yellow Urine Appearance Clear Urine pH 6.0 Ur Specific [place] >= 1.030 Urine Protein Negative Urine Glucose (UA) Negative Urine Ketones Trace Urine Blood Negative Urine Nitrite Negative Urine Bilirubin Negative Urine Urobilinogen 0.2 Ur Leukocyte Esterase Negative Urine RBC 0 Urine WBC 0 Ur Epithelial Cells 0 Urine Bacteria 0 Departure - Departure Clinical Impression: Esophagitis Chronic gastritis Qualifiers: Gastritis type: other gastritis Gastritis bleeding: without bleeding Qualified Code(s): K29.50 - Unspecified chronic gastritis without bleeding Anxiety disorder Qualifiers: Anxiety disorder type: panic disorder without agoraphobia Qualified Code(s): F41.0 - Panic disorder [episodic paroxysmal anxiety] Disposition: Discharge to Home or Self Care Condition: Fair Departure Forms: ED Discharge - Pt. Copy, Patient Portal Self Enrollment Diet: bland diet Activity: increase activity as tolerated Referrals: Cristhian Low MD [Primary Care Provider] - 1-5 Days Prescriptions: predniSONE [Prednisone] 20 mg PO BID #60 tab Promethazine HCl 25 mg PO Q6H PRN #10 tab PRN Reason: Vomiting Home Medications: Ambulatory Orders Aspirin 325 mg PO DAILY 03/30/16 Multiple Vitamins W/ Minerals [Multivitamin Adults] 1 unit PO DAILY 03/30/16 Trazodone HCl 100 mg PO BEDTIME #7 tab 02/05/17 Albuterol Sulfate Nebs [Proventil Nebs] 1 puff INH QID 08/18/17 Fluticasone Propionate (Nasal) [Flonase] 50 mcg NA DAILY 08/18/17 Albuterol Sulfate Nebs [Proventil Nebs] 2.5 mg NEB Q4H PRN #120 vial 08/20/17 Citalopram Hydrobromide [Celexa] 40 mg PO DAILY #90 tab 08/20/17 Lamotrigine [Lamictal] 25 mg PO DAILY #90 tab 08/20/17 Oxcarbazepine [Trileptal] 150 mg PO BID #180 tab 08/20/17 Propranolol HCl [Inderal] 20 mg PO BID #180 tab 08/20/17 Trazodone HCl [Trazodone Hydrochloride] 100 mg PO BEDTIME #90 tab 08/20/17 Oxcarbazepine 150 mg PO BID #20 tab 03/03/19 Trazodone HCl 100 mg PO QPM #10 tab 03/03/19 Methylprednisolone [Medrol Dose [place]] 4 mg PO DAILY #1 tab 05/23/19 Azithromycin 500 mg PO DAILY #7 tab 10/21/19 George/Poly/Hc Otic Susp [Cortisporin Otic Susp] 4 drop RIGHT_EAR Q6H #7 days 10/21/19 Promethazine HCl 25 mg PO Q6H PRN #10 tab 03/10/20 predniSONE [Prednisone] 20 mg PO BID #60 tab 03/10/20 Additional Instructions: The patient is a 50-year-old male presents emergency room secondary to a month-long progression of his chronic gastritis and reflux symptoms. He has been off of medications for this. He is going to be written for Pepcid to take twice daily. He does need to maintain small meals with bland food. He does need to increase his fluid intake. He will additionally be written for Phenergan for as needed use for any nausea as he is out of nausea medications. Laboratory work and EKG along with x-ray are reassuring. I do want him to keep follow-up with his primary care doctor next week and keep follow-up with psychiatry for further adjustment of his psychiatric medications. Anxiety does play a component in his somatic symptoms. ER warnings are given. He tested negative for coronavirus here today.
[2020-03-10 17:59] VITALS: BP 124/79; O2SAT 96
== END 2020-03-10 17:55 | disposition home or self-care (01) ==
LOC: ER 15:07
DX: K29.50 Unspecified chronic gastritis without bleeding (principal); K20.90 Esophagitis, unspecified without bleeding; F41.0 Panic disorder [episodic paroxysmal anxiety]; Z20.828 Contact with and (suspected) exposure to other viral communicable diseases; I45.10 Unspecified right bundle-branch block; I10 Essential (primary) hypertension; F31.9 Bipolar disorder, unspecified; F17.220 Nicotine dependence, chewing tobacco, uncomplicated
CPT/HCPCS: 36415; 74019; 80053; 81001; 82150; 82550; 82553; 83690; 83735; 83880; 84443; 84484; 85025; 85379; 85610; 85730; 87635; 93005; J2405; Q0169

== ENCOUNTER → 2020-03-28 | Outpatient (CLI) | payer OTHER | LOC: YCFC.O 16:01 | PROVIDERS: ATTEND Nurse Practitioner | DX: Z20.828 Contact with and (suspected) exposure to other viral communicable diseases (principal) ==